=== PATIENT | male | born 1975 | race Caucasian/White ===

== ENCOUNTER 2024-01-01 09:08 | Emergency (ER) | payer OTHER, SELFPAY ==
[2024-01-01 09:14] VITALS: BP 117/74; PULSE 62; RESP 16; TEMP 36.2; O2SAT 97
[2024-01-01 09:22] VITALS: BP 117/74; PULSE 62; RESP 16; TEMP 36.2; O2SAT 97
--- NOTE | 2024-01-01 09:33 | ED.EYEPROB ---
HPI - Eye Problem General Chief complaint: Eye Problems Stated complaint: Eye Pain Time Seen by Provider: 01/01/24 09:18 Source: patient and RN notes reviewed Mode of arrival: ambulatory Limitations: no limitations History of Present Illness HPI Narrative: Patient presents today complaining of a 2 day history of soreness to the left lower eyelid at the lash line. Today he woke up with redness to this area as well. Denies drainage or vision changes. He has tried some azcs-iht-maujjgk drops without relief. Related Data Home Medications Medication Instructions Recorded Confirmed acetaminophen 500 mg tablet 500 mg PO Q6H PRN Pain 09/20/23 01/01/24 (Tylenol Extra Strength) alprazolam 0.5 mg tablet (Xanax) 0.5 mg PO QHS PRN Pain 09/20/23 01/01/24 apixaban 5 mg tablet (Eliquis) 5 mg PO BID 09/20/23 01/01/24 atorvastatin 10 mg tablet (Lipitor) 10 mg PO DAILY 09/20/23 01/01/24 hydrochlorothiazide 25 mg tablet 25 mg PO DAILY 09/20/23 01/01/24 metoprolol tartrate 50 mg tablet 50 mg PO BID 09/20/23 01/01/24 omeprazole magnesium 20 mg 20 mg PO DAILY 09/20/23 01/01/24 tablet,delayed release (Prilosec OTC) Allergies Allergy/AdvReac Type Severity Reaction Status Date / Time amoxicillin [From Augmentin] AdvReac Intermediate c diff Verified 01/01/24 09:20 clavulanic acid AdvReac Intermediate c diff Verified 01/01/24 09:20 [From Augmentin] Review of Systems Review of Systems: CONSTITUTIONAL: Denies body aches, fever, chills, or sweats. EYES: Denies visual changes, or discharge.+ left lower eyelid redness and pain ENT: Denies rhinorrhea, congestion, sore throat, or otalgia. CARDIOVASCULAR: Denies chest pain, palpitations, or edema. RESPIRATORY: Denies cough or dyspnea. GASTROINTESTINAL: Denies abdominal pain, nausea, vomiting, or diarrhea. GENITOURINARY: Denies dysuria or hematuria. SKIN: Denies rash, itching, or wounds. MUSCULOSKELETAL: Denies back pain, joint pain, or myalgia. NEUROLOGIC: Denies headache, numbness, tingling, or weakness. PSYCH: Denies depression or anxiety. [facility] Past Medical History Medical History GERD (gastroesophageal reflux disease) Seasonal allergies Tonsillectomy planned Family History Family History Father Hypertension Depression Alcoholism Mother Hypertension Depression Heart disease Alcoholism Sibling Alcoholism Depression Social History Social History Smoking status: Never smoker Alcohol intake: never Substance use: current Substance use type: marijuana Comments At time of signature, I have reviewed and agree with nursing past medical, surgical, social and family history unless otherwise noted. Please see nursing chart for further information. There is no relevant family history pertinent to the presenting complaint Exam Narrative: GENERAL: Well-appearing, well-nourished, and in no acute distress. HEAD: Normocephalic, atraumatic. EYES: EOMI. PERRL. Right eye normal. Left eye: lower eyelid has small area of swelling towards the center that is erythematous. No pustule at present. Mildly tender to palpation. Conjunctiva normal. No drainage. Upper eyelid normal. ENT: Mucous membranes pink and moist. NECK: Normal AROM. CHEST: No respiratory distress. EXTREMITIES: Normal range of motion. No edema. SKIN: Warm, dry, no rash. Capillary refill normal. Normal skin turgor. NEURO: No focal deficits. Alert and oriented x3. Gait steady. PSYCH: Normal affect. No signs of depression or anxiety. Course Course Level of Care: Express Care Visit Vital Signs Vital signs: Vital Signs Temperature 97.1 F L 01/01/24 09:14 Pulse Rate 62 01/01/24 09:14 Respiratory Rate 16 01/01/24 09:14 Blood Pressure 117/74 01/01/24 09:14 Pulse Oximetry 97 01/01/24 0
== END 2024-01-01 09:37 | disposition home or self-care (01) ==
PROVIDERS: Emergency Provider Nurse Practitioner
DX: H00.015 Hordeolum externum left lower eyelid (principal); F12.90 Cannabis use, unspecified, uncomplicated; K21.9 Gastro-esophageal reflux disease without esophagitis
CPT/HCPCS: 99213; G0463

== ENCOUNTER 2024-01-31 10:44 | Outpatient (CLI) | payer OTHER, SELFPAY | END 2024-01-31 10:45 | disposition home or self-care (01) | LOC: ANHAUDASC 10:44 | PROVIDERS: Visit Provider Otolaryngology | DX: H90.6 Mixed conductive and sensorineural hearing loss, bilateral (principal); H74.23 Discontinuity and dislocation of ear ossicles, bilateral; H72.93 Unspecified perforation of tympanic membrane, bilateral; Z90.89 Acquired absence of other organs | CPT/HCPCS: 92557; 92567 ==

== ENCOUNTER 2024-10-26 08:25 | Outpatient (CLI) | payer OTHER, SELFPAY ==
--- OUTSIDE RECORDS SUMMARY | 2024-10-26 08:33 | XMS_ITS | Clinical Summary ---
Author Organization [facility] Address [address] [place] [address] Care Team Providers Care Director Sanitation Bureau Name Role Phone Dick Mai MD Primary Care Provider + Allergies Active Allergy Reactions Criticality Noted Date Comments Amoxicillin-Pot Clavulanate Other (See comments) Low 03/13/2021 C diff Medications atorvastatin (LIPITOR) 10 mg tablet Take 1 tablet (10 mg total) by mouth daily 1 Active hydroCHLOROthia zide (HYDRODIURIL) 25 mg tablet Take 1 tablet (25 mg total) by mouth daily 1 Active omeprazole (PriLOSEC) 20 mg capsule Take 1 capsule (20 mg total) by mouth daily 1 Active cholecalciferol , vitamin D3, (VITAMIN D3 ORAL) Take by mouth daily Active ALPRAZolam (XANAX) 0.5 mg tablet Take 1 tablet (0.5 mg total) by mouth 9 Active OMEGA-3 FATTY ACIDS-FISH OIL ORAL Take by mouth daily Active MULTIVITAMIN ORAL Take 1 tablet by mouth daily Active apixaban (Eliquis) 5 mg tablet Take 1 tablet (5 mg total) by mouth 2 (two) times a day 2 Active sildenafiL (VIAGRA) 100 mg tablet Take 1 tablet (100 mg total) by mouth daily as needed for erectile dysfunction Active metoprolol tartrate (LOPRESSOR) 50 mg immediate release tablet Take 1 tablet (50 mg total) by mouth nightly 2 Active metoprolol XL (TOPROL-XL) 100 mg 24 hr tablet Take 1 tablet (100 mg total) by mouth daily Active Active Problems Problem Noted Date Diagnosed Date Essential hypertension 10/08/2021 Obstructive sleep apnea 10/08/2021 Thrombocytopenia 10/08/2021 Overview (10/08/2021): Sees Dr. Lin History of recurrent ear infection 10/08/2021 Assessment & Plan (10/08/2021 6:36 PM CDT): Will send prescription of cefidnir to patient pharmacy at this time as well as ofloxacin drops. Patient instructed to follow up with ENT for any worsening symptoms. Patient verbalized understanding and agreed to plan of care at this time. PAF (paroxysmal atrial fibrillation) 08/13/2021 Cardiac pacemaker in situ 04/01/2021 Overview (10/08/2021): Placed for syncope Syncope and collapse 03/13/2021 Assessment & Plan (03/13/2021 11:30 AM CDT): Patient has recurrent syncope with 3 episodes over the past 6 months and a prior distant history of recurrent syncope as well at which point cardiac and neurologic testing was reportedly normal per patient report. To date for these most recent episodes he has undergone cardiac evaluation which has been unrevealing by reviewed reports. At this time but has not had experienced any syncopal episodes since it has been inserted. He exhibits a normal neurologic examination. I will check an MRI brain with and without contrast in addition to a sleep-deprived EEG with hyperventilation photic stimulation. He will follow-up in neurology clinic thereafter. Dyslipidemia 05/26/2019 Nonalcoholic fatty liver disease 11/14/2018 Overview (10/08/2021): Dr. Wilkins/GI - liver biopsy 10/2018 - fatty liver, without significant inflammation or fibrosis (it showed mild chronic inflammation, probably due to NAFLD (non-alcoholic fatty liver disease) Resolved Problems Problem Noted Date Diagnosed Date Resolved Date Caries lesion, facial surface, advanced 05/12/2023 05/12/2023 Assessment & Plan (05/12/2023 6:59 AM COAT OPERATOR INSULATOR): Severe decay 16 and 17 To OR for extraction 16 and 17. Procedure reviewed including risks, benefits and alternative treatments, consent signed Surgical History Surgery Date Site/Laterality Comments HERNIA REPAIR TYMPANOSTOMY TUBE PLACEMENT 16 times TONSILLECTOMY CARDIAC PACEMAKER PLACEMENT [facility] / [facility] DENTAL SURGERY CYST REMOVAL back ESOPHAGOGASTRODUODENOSCOPY COLONOSCOPY Medical History Medical History Date Comments Liver disease Hypertension High cholesterol . Syncope after anesthesia 2013, one episode Arrhythmia a fib Pacemaker [facility]/ [facility] GERD (gastroesophageal reflux disease) Depression HL (hearing loss) Chronic diarrhea Clostridium difficile diarrhea History of recurrent ear infection Thrombocytopenia PAF (paroxysmal atrial fibrillation) (HCC) Sleep apnea Family History Medical History Relation Name Comments Alcohol abuse Brother Drug abuse Brother Alcohol abuse Father COPD Father Alcohol abuse Mother Hypertension Mother Alcohol abuse Sister Drug abuse Sister Relation Name Status Comments Brother Alive Father Alive Mother Alive Sister Alive Social History Tobacco Use Types Packs/Day Years Used Date Smoking Tobacco: Former Cigars Smokeless Tobacco: Never Tobacco Cessation:Counseling Given: Not Answered AUDIT-C Answer Date Recorded Q1: How often do you have a drink containing alcohol? Never 06/16/2024 Q2: How many drinks containi ng alcohol do you have on a typical day when you are drinking? Patient does not drink Q3: How often do you have si x or more drinks on one occasion? Never 06/16/2024 Personal Safety Answer Date Recorded Have you ever been in or are you currently in a harmful physical or emotional relationship or is someone making you feel afraid or unsafe? Denies 06/16/2024 Sex and Gender Information Value Date Recorded Sex Assigned at Not on file Legal Sex Male 10:40 AM COAT OPERATOR INSULATOR Gender Identity Male 03/12/2021 7:45 PM CDT Sexual Orientation Not on file Obstetrics History Last Filed Vital Signs Vital Sign Reading Time Taken Comments Blood Pressure 137/92 06/16/2024 11:10 AM COAT OPERATOR INSULATOR Pulse 60 06/16/2024 11:10 AM COAT OPERATOR INSULATOR Temperature 36.7 C (98 F) 06/16/2024 9:39 AM COAT OPERATOR INSULATOR Respiratory Rate 19 06/16/2024 11:10 AM COAT OPERATOR INSULATOR Oxygen Saturation 96% 06/16/2024 11:10 AM COAT OPERATOR INSULATOR Inhaled Oxygen Concentration - - Weight 154.2 kg (340 lb) 06/16/2024 10:13 AM COAT OPERATOR INSULATOR Height 170.2 cm (5' 7 ) 06/16/2024 10:13 AM COAT OPERATOR INSULATOR Body Mass Index 53.25 06/16/2024 10:13 AM COAT OPERATOR INSULATOR Plan of Treatment Health Maintenance Due Date Last Done Comments Depression Screening 1975 Hepatitis C Screening 1975 DTaP/Tdap/Td Vaccine (1 - Tdap) 09/10/1986 Hepatitis B Screening 09/10/1993 Regular Well Visit/Exam 18-64 09/10/1993 Pneumococcal vaccine <65 (1 of 2 - PCV) 09/10/1994 Covid-19 Vaccine ( - 2023-2 5 season) 2024 11/01/2020, 10/07/2020 Influenza Vaccine (Season Ended) 2025 05/30/2020, 03/27/2019, 04/23/2016, Additional history exists Colon Cancer Screening-Colonoscopy 06/16/20342023 Medical Devices Implanted Type Area Director Of Development Device Identifier Shelf Expiration Date Model / Serial / Lot Pacemaker-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/2020 (Quantity not on file) Pacemaker Left: Chest Procedures Procedure Name Priority Date/Time Associated Diagnosis Comments COLONOSCOPY 06/16/2024 10:16 AM COAT OPERATOR INSULATOR from Last 3 Months or Most Recently Relevant to Health Maintenance Results * Colonoscopy (06/16/2024 10:16 AM COAT OPERATOR INSULATOR) Anatomical Region Laterality Modality Other Narrative Procedure Note Kim Godoy MD - 06/16/2024 10:16 AM CST [facility] ENDOS[facility] Patient Name: Ulysses Jacob Procedure Date: 06/16/2024 10:16AM Date of : 1975 Admit Type: Outpatient Age: 48 Gender: Male Attending MD: Kim Godoy M.D. Room: [facility] ENDOSCOPY ROOM 06 Note Status: Finalized Procedure: Colonoscopy Indications: Screening for colorectal malignant neoplasm Referring MD: Providers: Kim Godoy M.D. Medicines: See the Anesthesia note for documentation of the administered medications Complications: No immediate complications. Estimated Blood Loss: Estimated blood loss: none. Procedure: Pre-Anesthesia Assessment: - Prior to the procedure, a History and Physicalwas performed, and patient medications, allergies and sensitivities were reviewed. The patient'stolerance of previous anesthesia was reviewed. - The risks and benefits of the procedure and the sedation options and risks were discussed with the patient. All questions were answered and informed consent was obtained. The benefits, risks and alternatives of theprocedure and sedation were discussed and informed consentwas obtained. All questions were answered. Please referto the signed informed consent document in the medical record. The scope was passed under direct vision.The [id number]-[id number] colonoscope was introduced through theanus and advanced to the cecum, identified byappendiceal orifice and ileocecal valve. The colonoscopy was performed without difficulty. The patient tolerated the procedure well. The quality of the bowel preparation was good. The ileocecal valve,appendiceal orifice, and rectum were photographed. Prep was administered in a single dose. Findings: The perianal and digital rectal examinations were normal. Pertinent negatives include normal sphincter tone. A few small-mouthed diverticula were found in the left colon. A 20 mm polyp was found in the ascending colon. The polyp wassessile. The polyp was removed with a hot snare. Resection and retrieval were complete. A 16 mm polyp was found in the transverse colon. The polyp wassessile. The polyp was removed with a hot snare. Resection and retrieval were complete. A 21 mm polyp was found in the descending colon. The polyp wassessile. The polyp was removed with a hot snare. Resection and retrieval were complete. The retroflexed view of the distal rectum and anal verge was normaland showed no anal or rectal abnormalities. Impression: - Diverticulosis in the left colon. - One 20 mm polyp in the ascending colon, removedwith a hot snare. Resected and retrieved. - One 16 mm polyp in the transverse colon, removed with a hot snare. Resected and retrieved. - One 21 mm polyp in the descending colon, removed with a hot snare. Resected and retrieved. - The distal rectum and anal verge are normal on retroflexion view. Recommendation: - Resume previous diet. - Continue present medications. - Await pathology results. Kim Godoy M.D. Kim Godoy M.D. 06/16/2024 11:05:33 AM . Number of Addenda: 0 Note Initiated On: 06/16/2024 10:16 AM Recognized by the [employer] for promoting quality in endoscopy Kmi Godoy MD ENDOSCOPY PROCEDURES Jazmin l Result from Last 3 Months or Most Recently Relevant to Health Maintenance [facility] CIGNA OPEN ACCESS Member Subscriber Plan / Payer (Ef fective 2017-Present) Name:Nidia Ulysses M Relation to Subscriber:Self Name:Nidia Ulysses Gallagher Payer ID:[id number] ([facility]) Type:CIGNA HMO/PPO Address: [address] [place] [address] [place] [address] CIGNA OPEN ACCESS Care Teams Director Sanitation Bureau Relationship Specialty Start Date End Date Dick Mai MD PCP - General 10/29/18
--- OUTSIDE RECORDS SUMMARY | 2024-10-26 08:33 | XMS_ITS | Encounter Summary ---
Author Organization [facility] Address [address] [place] [address] Care Team Providers Care Computer Network Support Specialist Name Role Phone Dick Mai MD Primary Care Provider [phone] Roc Cuevas MD Unavailable Encounter Details Date Type Department Care Team (Late st Contact Info) Description 03/20/2022 [employer] Message Enc [facility], [facility] [address] [place] [address] Rakel Mohan, ANP- Three [facility]. [address] [place] [address] Metoprolol Social History Tobacco Use Types Packs/Day Years Used Date Smoking Tobacco: Former Cigarettes Smokeless Tobacco: Never Comments:cigar/pipe 3 x week Alcohol Use Standard Drinks/Week Comments Not Currently 0 (1 standard drink = 0.6 oz pur e alcohol) quit 07/08/18 AUDIT-C Answer Date Recorded Frequency of Alcohol Consumption Never 05/08/2019 Average Number of Drinks Not on file 019 Frequency of Binge Drinking Not on file 04/28 Sex and Gender Information Value Date Recorded Sex Assigned at Male 07/24/2024 8:20 AM ADVERTISING INTERNSHIP Legal Sex Male 4:19 PM CDT Gender Identity Male 09/15/2021 6:19 AM CDT Sexual Orientation Straight 09/15/2021 6: 19 AM CDT 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 No / Unsure 03/13/2022 3:44 PM CDT documented as of this encounter Functional Status * RETIRED Are you deaf or do you have serious difficulty hearing Answer Date of Assessment Author Status No 08/13/2021 5:26 PM ADVERTISING INTERNSHIP Activ e * RETIRED Are you blind or do you have serious difficulty seeing, even when wearing glasses? Answer Date of Assessment Author Status No 08/13/2021 5:26 PM ADVERTISING INTERNSHIP Activ e * Do you have serious difficulty walking or climbing stairs? Answer Date of Assessment Author Status No 08/13/2021 5:26 PM Abby Beckwith RN Active * Do you have difficulty dressing or bathing? Answer Date of Assessment Author Status No 08/13/2021 5:26 PM Abby Beckwith RN Active * Because of a physical, mental, or emotional condition, do you have difficulty doing errands alone such as visiting a doctor's office or shopping? Answer Date of Assessment Author Status No 08/13/2021 5:26 PM Abby Beckwith RN Active documented as of this encounter Mental Status * Because of a physical, mental, or emotional condition, do you have serious difficulty concentrating, remembering, or making decisions? Answer Entry Date Author Status No 08/13/2021 5:26 PM Abby Beckwith RN Active documented in this encounter Plan of Treatment Upcoming Encounters Date Type Department Care Team (Late st Contact Info) Description 01/22/2025 8:30 AM CDT Office Visit [facility], [facility] [address] [place], [place] [phone] Rakel Mohan, ANP-BC [facility]. [address] [place], [place] [phone] 01/22/2025 8:45 AM CDT Office Visit [facility], [place] [address] [place], [place] [phone] Katya Valadez MD [facility]. [facility] [address] [place] [address] documented as of this encounter Visit Diagnoses Not on filedocumented in this encounter Care Teams Computer Network Support Specialist Relationship Specialty Start Date End Date Dick Mai MD [address] [place] [id number] PCP - General 07/06/16 Roc Cuevas MD [facility]. [facility] [address] [place], [place] [phone] [place] Senior Product Analyst INTERVENTIONAL CARDIOLOGY 02/24/19 documented as of this encounter
--- OUTSIDE RECORDS SUMMARY | 2024-10-26 08:33 | XMS_ITS | Encounter Summary ---
Author Organization [facility] Address [address] [place] [address] Care Team Providers Care Medical Bill Processor Name Role Phone Dick Mai MD Primary Care Provider [phone] Roc Cuevas MD Unavailable Encounter Details Date Type Department Care Team (Late st Contact Info) Description 03/16/2024 [employer] Message Enc [facility], [facility] [address] [place] [address] Rakel Mohan, ANP- Three [facility]. 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 Answer Date of Assessment Author Status No 08/13/2021 5:26 PM CLOTH TEARER Activ e * Do you have serious [...] Description 01/22/2025 8:30 AM CDT Office Visit [facility], [place] [place], [place] [phone] Rakel Mohan, ANP-BC [facility]. [address] [place] [address] 01/22/2025 8:45 AM CDT Office Visit [facility], [place] [place] [address] Katya Valadez MD Three [facility]. [facility] [address] [place] [address] documented as of this encounter Visit Diagnoses Not on filedocumented in this encounter Care Teams Medical Bill Processor Relationship Specialty Start Date End Date Dick Mai MD [address] [place] [phone] PCP - General 07/06/16 Roc Cuevas MD [facility]. [facility] [address] [place] [address] [place] Respiratory Care Instructor INTERVENTIONAL CARDIOLOGY 02/24/19 documented as of this encounter
--- OUTSIDE RECORDS SUMMARY | 2024-10-26 08:33 | XMS_ITS | Encounter Summary ---
Author Organization [facility] Address [address] [place] [address] Care Team Providers Care Pump Service Supervisor Name Role Phone Dick Mai MD Primary Care Provider [phone] Roc Cuevas MD Unavailable Encounter Details Date Type Department Care Team (Late st Contact Info) Description 07/02/2023 [employer] Message Enc [place] [facility], [address] [address] [place], [facility] Provider NO events on transmission Social History Tobacco Use Types Packs/Day Years [...] Sex Assigned at Male 07/24/2024 8:20 AM LABORER HEADING Legal Sex Male 4:19 PM CDT Gender [...] Assessment Author Status No 08/13/2021 5:26 PM LABORER HEADING Activ e * RETIRED Are you blind or do you have serious difficulty seeing, even when wearing glasses? Answer Date of Assessment Author Status No 08/13/2021 5:26 PM LABORER HEADING Activ e * Do you have serious [...] Description 01/22/2025 8:30 AM CDT Office Visit [facility], [place] [place], [place] [phone] Rakel Mohan, ANP-BC [facility]. [address] [place], [place] [phone] 01/22/2025 8:45 AM CDT Office Visit [facility], [place] [place], [place] [phone] Katya Valadez MD [facility]. [address] [place] [address] documented as of this encounter Visit Diagnoses Not on filedocumented in this encounter Care Teams Pump Service Supervisor Relationship Specialty Start Date End Date Dick Mai MD [address] [place] [phone] PCP - General 07/06/16 Roc Cuevas MD [facility]. [facility] [address] [place], [place] [phone] [place] Auditor Tax INTERVENTIONAL CARDIOLOGY 02/24/19 documented as of this encounter
--- OUTSIDE RECORDS SUMMARY | 2024-10-26 08:33 | XMS_ITS | Encounter Summary ---
Author Organization [facility] Address [address] [place] [address] Care Team Providers Care Tour Leader Name Role Phone Dick Mai MD Primary Care Provider [phone] Roc Cuevas MD Unavailable Encounter Details Date Type Department Care Team (Late st Contact Info) Description 04/01/2023 SprinkleBit Message Enc [place] [facility] THREE [facility], [facility] [address] [place] [address] Rakel Mohan, ANP-BC Three [facility]. [facility] [address] [place] [address] New symptom / sensation Social History Tobacco Use Types Packs/Day Years [...] Sex Assigned at Male 07/24/2024 8:20 AM FINISHED HARDWARE ERECTOR Legal Sex Male 4:19 PM CDT Gender [...] Assessment Author Status No 08/13/2021 5:26 PM FINISHED HARDWARE ERECTOR Activ e * RETIRED Are you blind or do you have serious difficulty seeing, even when wearing glasses? Answer Date of Assessment Author Status No 08/13/2021 5:26 PM FINISHED HARDWARE ERECTOR Activ e * Do you have serious [...] Description 01/22/2025 8:30 AM CDT Office Visit [place] [facility], [place] [address] [place], [place] [id number] Rakel Mohan, ANP-BC [facility]. [address] [place] [address] 01/22/2025 8:45 AM CDT Office Visit [place] [facility], [place] [address] [place] [address] Katya Valadez MD Three [facility]. [facility] [address] [place] [address] documented as of this encounter Visit Diagnoses Not on filedocumented in this encounter Care Teams Tour Leader Relationship Specialty Start Date End Date Dick Mai MD [address] [place] [id number] PCP - General 07/06/16 Roc Cuevas MD Three [facility]. [facility] [address] [place] [address] [place] Dial Maker INTERVENTIONAL CARDIOLOGY 02/24/19 documented as of this encounter
--- OUTSIDE RECORDS SUMMARY | 2024-10-26 08:33 | XMS_ITS | Encounter Summary ---
Author Organization [facility] Address [address] [place] [address] Care Team Providers Care Clay Carman Name Role Phone Dick Mai MD Primary Care Provider [phone] Roc Cuevas MD Unavailable Encounter Details Date Type Department Care Team (Late st Contact Info) Description 10/09/2022 Deem Message Enc [place] [facility] THREE [facility], [facility] [address] [place] [address] [facility] Provider Dental procedure Social History Tobacco Use Types Packs/Day Years [...] Sex Assigned at Male 07/24/2024 8:20 AM ASSISTANT HVAC MECHANIC Legal Sex Male 4:19 PM CDT Gender [...] Assessment Author Status No 08/13/2021 5:26 PM ASSISTANT HVAC MECHANIC Activ e * RETIRED Are you blind or do you have serious difficulty seeing, even when wearing glasses? Answer Date of Assessment Author Status No 08/13/2021 5:26 PM ASSISTANT HVAC MECHANIC Activ e * Do you have serious [...] Description 01/22/2025 8:30 AM CDT Office Visit [place] [facility], [facility] [address] [place], [place] [id number] Rakel Mohan, ANP-BC [facility]. [address] [place], [place] [id number] 01/22/2025 8:45 AM CDT Office Visit [place] [facility], [place] [address] [place], [place] [id number] Katya Valadez MD [facility]. [address] [place], [place] [id number] documented as of this encounter Visit Diagnoses Not on filedocumented in this encounter Care Teams Clay Carman Relationship Specialty Start Date End Date Dick Mai MD [address] [place] [address] PCP - General 07/06/16 Roc Cuevas MD [facility]. [facility] [address] [place] [address] [place] [facility] Assistant INTERVENTIONAL CARDIOLOGY 02/24/19 documented as of this encounter
--- OUTSIDE RECORDS SUMMARY | 2024-10-26 08:33 | XMS_ITS | CONTINUITY OF CARE DOCUMENT ---
Author Name jolene evelynda Address Unknown Organization [facility] Address [address] [place] [address] Phone [phone] Care Team Providers Care Supervisor Riveting Name Role Phone Jesse WINTER, Miguel Unavailable [phone] JASVIR DURÁN DO Unavailable [phone] JASVIR DURÁN DO Unavailable PROBLEMS Condition Status Date Provider Notes HYPERCHOLESTEROLEMIA active Yessenia Stahlsch midt OBESITY active Yessenia Stahlschmidt GERD active Yessenia Stahlschmidt CHEST PAIN-TYPE TO BE DETERMINED active Ang kelly Stahlschmidt PALPITATIONS active Yessenia Stahlschmidt DIZZINESS active Yessenia Stahlschmidt SLEEP APNEA active Miguel Molina MD ENCOUNTERS Date Type Provider Location Encounter Diag nosis - In-person encounter Office Visit Miguel Molina MD, [facility] SLEEP APNEA VITAL SIGNS Date Observation Value Provider blood pressure, diastolic, left arm 84 mm [Hg] Des Braga blood pressure, systolic, left arm 124 mm [Hg] Des Braga blood pressure, diastolic, right arm 80 m m[Hg] Des Braga blood pressure, systolic, right arm 120 m m[Hg] Des Braga pulse rate 88 /min Des Avila nsaisha oxygen saturation, oximetry 94 % Des Braga respiratory rate E&M 20 /min Anita Braga weight E&M 251 [lb_av] Des Avila nson ALLERGIES No Known Drug Allergies HISTORY OF MEDICATION USE Medication Status Instructions Dates Provider Indications Com ments DALMANE 15 MG CAPS active once daily Des Braga AMBIEN 10 MG ORAL TABLET active ONE TAB. AT BEDTIME Des Braga XANAX 0.25 MG ORAL TABLET active ONE TAB. DAILY Des Braga EFFEXOR XR 150 MG ORAL CAPSULE EXTENDED RELEASE 24 HOUR active ONE TAB. DAILY Des Braga PRILOSEC 20 MG ORAL CAPSULE DELAYED RELEASE completed ONE TAB DAILY - Des Braga ATENOLOL 50 MG ORAL TABLET active ONE HALF TABLET TWO TIMES DAILY Cee Villalobos metoprolol tatrate 50mg not available sub. atenolol 50mg SOCIAL HISTORY Date Observation Value Provider social history E&M Marital Statu s: L cl alone E thnicity: Miguel Molina MD social history reviewed E&M reviewed Miguel Molina MD physical exercise, f requency, days per week no [employer] caffeine use, averag e drinks per day yes [employer] alcohol use, average drinks per day social basis only [employer] smoking status Non-smoker [employer] MENTAL STATUS Date Observation Value Provider assessment of judgme nt and insight E&M Alert and oriented to time, place and person. Mood and affect are normal. Miguel Molina MD INSURANCE PROVIDERS Payer name Policy type / Coverage type [place] red constitution party ID [employer] [facility] Other [id number] TREATMENT PLAN Date Name Performer follow up:due to ismael itary pvc's- check sleep study and continue metoprolol Miguel Molina MD follow up:resolved as long as he takes low dose metoprolol Miguel Molina MD follow up:could expl ain his symptoms and ventricular ectopy- schedule sleep study Miguel Molina MD
--- OUTSIDE RECORDS SUMMARY | 2024-10-26 08:33 | XMS_ITS | Clinical Summary ---
Author Organization [facility] Address [address] [place] [address] Care Team Providers Care Electric Switch Tester Name Role Phone Dick Mai MD Primary Care Provider [phone] Source Comments [facility],non-owned Affiliates and Associated Physician Practices is amultiple site organization consisting of ambulatory clinics and hospital sitesin [place], [place], [place] and [place]. This disclosure is being madepursuant to the Care Everywhere program and may not contain all information available regarding this patient. Last updated 18.[facility] Allergies No known active allergies Medications * Be aware that medications may not be up to date on this document. Alwaysverify current medications with the patient. ALPRAZolam (Xanax) 0.5 MG tablet Take 0.5 mg by mouth 3 times daily as needed for Anxiety. Active hydroCHLOROthia zide (HYDRODIURIL) 25 MG tabletIndicatio ns:Hypertension Take 25 mg by mouth once daily Reasons: High Blood Pressure Disorder Active penicillin v potassium (VEETIDS) 500 MG tablet Take 500 mg by mouth every 6 hours Active fluticasone propionate (FLONASE) 50 MCG/ACT nasal sprayIndication s:Allergic Rhinitis [place] 2 sprays into each nostril once daily Reasons: Allergic Rhinitis Active omeprazole (PriLOSEC) 20 MG capsule Take 20 mg by mouth once daily 03/08/2022 Active apixaban (Eliquis) 5 MG tablet Take 5 mg by mouth 2 times daily 08/13/2021 Active metoprolol tartrate IR (Lopressor) 50 MG tablet Take 50 mg by mouth 2 times daily 11/04/2021 Active atorvastatin (Lipitor) 10 MG tablet Take 10 mg by mouth once daily 03/01/2022 Active Active Problems Problem Noted Date Diagnosed Date NAFLD (nonalcoholic fatty liver disease) 019 Overview (11/14/2018): Dr. Wilkins/GI - liver biopsy 10/2018 - fatty liver, without significant inflammation or fibrosis (it showed mild chronic inflammation, probably due to NAFLD (non-alcoholic fatty liver disease) Family History Medical History Relation Name Comments Cancer - Liver Father Cancer - Liver Maternal Grandfather Cancer - Colon Neg Hx Colon polyps Neg Hx Malignant Hyperthermia Neg Hx Relation Name Status Comments Father Maternal Grandfather Social History Tobacco Use Types Packs/Day Years Used Date Smoking Tobacco: Some Days Cigarettes Started: 08/10/2018 Smokeless Tobacco: Never Comments:current cigar use Alcohol Use Standard Drinks/Week Comments No 0 (1 standard drink = 0.6 oz pur e alcohol) Sex and Gender Information Value Date Recorded Sex Assigned at Not on file Legal Sex Male 6:04 AM SCALLOP SHUCKER Gender Identity Not on file Sexual Orientation Not on file Last Filed Vital Signs Vital Sign Reading Time Taken Comments Blood Pressure 117/74 11/09/2018 1:00 PM CDT Pulse 66 11/09/2018 1:00 PM CDT Temperature 37 C (98.6 F) 11/09/2018 10:40 AM CDT Respiratory Rate 18 11/09/2018 11:30 AM CDT Oxygen Saturation 94% 11/09/2018 1:00 PM CDT Inhaled Oxygen Concentration - - Weight 158.8 kg (350 lb) 03/11/2022 11:55 AM CDT Height 170.2 cm (5' 7 ) 03/11/2022 11:55 AM CDT Body Mass Index 54.82 03/11/2022 11:55 AM CDT Plan of Treatment Health Maintenance Due Date Last Done Comments COLOGUARD (AGES 45-75) - COLON CA SCREENING 1975 COLON MONITORING 1975 COLONOSCOPY - COLON CA SCREENING 1975 CT COLONOGRAPHY - COLON CA SCREENING 1975 Colorectal Cancer Screening 1975 FIT - COLON CA SCREENING 1975 FLEX SIG - COLON CA SCREENING 1975 HIV SCREENING 09/10/1990 DTAP/TDAP/TD VACCINES (1 - Tdap) 09/10/1994 HEPATITIS B VACCINE (1 of 3 - 19+ 3-dose series) 09/10/1994 SCREENING FOR DIABETES 06/07/2018 COVID-19 VACCINE (3 - 2023- season) 2024 11/01/2020, 10/07/2020 DEPRESSION SCREENING 06/28/2024 INFLUENZA VACCINE (Season Ended) 2025 02/17/2021, 05/30/2020, 03/27/2019, Additional history exists ZOSTER VACCINE (1 of 2) 09/10/2025 HEPATITIS C SCREENING Completed 06/20/2018 HIB VACCINE Aged Out No longer eligi ble based on patient's age to complete this topic HPV VACCINE Aged Out No longer eligi ble based on patient's age to complete this topic MENINGOCOCCAL (Group B) VACCINE SHARED DECISION-MAKING Aged Out No longer eligible based on patient's age to complete this topic MENINGOCOCCAL GROUPS A/C/Y/W VACCINE Aged Out No longer eligible based on patient's age to complete this topic Procedures Procedure Name Priority Date/Time Associated Diagnosis Comments HEPATITIS C ANTIBODY Routine 06/20/2018 7:56 AM SCALLOP SHUCKER Abnormal LFTs from Last 3 Months or Most Recently Relevant to Health Maintenance Results * HEPATITIS C ANTIBODY (06/20/2018 7:56 AM SCALLOP SHUCKER) Hepatitis C Antibody <0.1 0.0 - 0.9 s/co ratio [facility] INSURANCE BILL Comment: Negative: < 0.8 Indeterminate: 0.8 - 0.9 Positive: > 0.9 . The CDC recommends that a positive HCV antibody result be followed up with a HCV Nucleic Acid Amplification test (224363). FASTING Blood BLOOD SPECIMEN / Unknown 06/20/2018 7:56 AM SCALLOP SHUCKER 06/20/2018 Narrative Resulting Agency Comment [facility] [address] [facility] [id number] us Marco Wilkins MD LAB - CHEMISTRY ORDERABLES Fin al Result [facility] INSURANCE BILL [address] [place] [phone] from Last 3 Months or Most Recently Relevant to Health Maintenance Insurance [employer] Care Teams Electric Switch Tester Relationship Specialty Start Date End Date Dick Mai MD PCP - General Family Medicine 06/07/18
--- OUTSIDE RECORDS SUMMARY | 2024-10-26 08:33 | XMS_ITS | Encounter Summary ---
Author Organization [facility] Address [address] [place] [address] Care Team Providers Care Shactor Helper Name Role Phone Dick Mai MD Primary Care Provider [phone] Roc Cuevas MD Unavailable Encounter Details Date Type Department Care Team (Late st Contact Info) Description 08/27/2023 Helpful Technologies Message Enc [place] [facility], [facility] [address] [place] [address] Rakel Mohan, ANP- Three [facility]. [address] [place] [address] New issue? 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 Answer Date of Assessment Author Status No 08/13/2021 5:26 PM DRIVER LICENSE TECHNICIAN Activ e * Do you have serious [...] 5:26 PM Abby Beckwith RN Active * Calculated C-SSRS Risk Score (Lifetime/Recent) Answer Date of Assessment Author Status No Risk Indicated 08/27/2023 1:02 PM Hamida Raza RN Active * [place] Suicide Severity Rating Scale (Screener/Recent Self-Report) Question Answer Date of Assessment Author Status 1. Wish to be (Past 1 Month) No 08/27/2023 1:02 PM Marah Raza RN Ac tive 2. Non-Specific Active Suicidal Thoughts (Past 1 Month) No 08/27/2023 1:02 PM Marah Raza RN Ac tive 6. Suicidal Behavior (Lifetime) No 08/27/2023 1:02 PM Marah Raza RN Ac tive documented as of this encounter Mental Status * Because of a physical, mental, or emotional condition, do you have serious difficulty concentrating, remembering, or making decisions? Answer Entry Date Author Status No 08/13/2021 5:26 PM DRIVER LICENSE TECHNICIAN Abby Crespo, RN Active documented in this encounter Plan of Treatment Upcoming Encounters Date Type Department Care Team (Late st Contact Info) Description 01/22/2025 8:30 AM CDT Office Visit [facility], [place] [place] [address] Rakel Mohan, ANP-BC Three [facility]. [place] [place], [place] [address] 01/22/2025 8:45 AM CDT Office Visit [place] [facility], [place] [place], [place] [address] Katya Valadez MD Three [facility]. [facility] [place], [place] [address] documented as of this encounter Visit Diagnoses Not on filedocumented in this encounter Care Teams Shactor Helper Relationship Specialty Start Date End Date Dick Mai MD [facility] [place] [address] PCP - General 07/06/16 Roc Cuevas MD [facility]. [place] [place], [place] [address] [place] Profile Shaper Operator INTERVENTIONAL CARDIOLOGY 02/24/19 documented as of this encounter
--- OUTSIDE RECORDS SUMMARY | 2024-10-26 08:33 | XMS_ITS | Encounter Summary ---
Author Organization [facility] Address [address] [place] [address] Care Team Providers Care Collect On Delivery Clerk Name Role Phone Dick Mai MD Primary Care Provider [phone] Roc Cuevas MD Unavailable Encounter Details Date Type Department Care Team (Late st Contact Info) Description 07/31/2019 Abstract [facility] [place] Three [facility], [facility] [address] [place] [address] Melanie Norris MA Social History Tobacco Use Types Packs/Day Years Used Date Smoking Tobacco: Former Smokeless Tobacco: Never Comments:cigar/pipe 3 x week Alcohol Use Standard Drinks/Week Comments No 0 (1 standard drink = 0.6 oz pur e alcohol) quit 07/08/18 AUDIT-C Answer Date Recorded Frequency of Alcohol Consumption Never 05/08/2019 Average Number of Drinks Not on file 019 Frequency of Binge Drinking Not on file 04/28 Sex and Gender Information Value Date Recorded Sex Assigned at Male 07/24/2024 8:20 AM ETCHER APPRENTICE Legal Sex Male 4:19 PM CDT Gender Identity Male 09/15/2021 6:19 AM CDT Sexual Orientation Straight 09/15/2021 6: 19 AM CDT 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 [place] [address] [place], [place] [id number] 01/22/2025 8:45 AM CDT Office Visit [facility] [address], [place] [place], [place] [address] Katya Valadez MD Three [address] [facility] [address] [place], [place] [id number] documented as of this encounter Procedures Procedure Name Priority Date/Time Associated Diagnosis Comments PROTIME (OUTSIDE LAB) Routine 07/29/2019 CBC (OUTSIDE LAB) Routine 07/29/2019 BASIC METABOLIC PANEL Routine 07/29/2019 LIPID PANEL Routine 07/29/2019 documented in this encounter Results * PROTIME (OUTSIDE LAB) (07/29/2019) PROTIME 10.6 INR 1.0 07/29/2019 us Doc [facility] Abstract LAB-OUTSIDE/ABSTRACTED Final Result * LIPID PANEL (07/29/2019) CHOLESTEROL 161 100 - 199 HDL 31 >39 TRIGLYCERIDES 192 0 - 149 LDL (CALCULATED) 92 0 - 99 07/29/2019 us Doc [facility] Abstract LABORATORY Final Result * BASIC METABOLIC PANEL (07/29/2019) SODIUM S/P/B 142 134 - 144 POTASSIUM S/P/B 3.9 3.5 - 5.2 CO2 25 20 - 29 CHLORIDE S/P/B 98 96 - 106 GLUCOSE 95 65 - 99 mg/dL CALCIUM S/P/B 9.7 8.7 - 10.2 BUN 13 6 - 24 CREATININE S/P/B 1.02 0.7 - 1.3 EGFR AFR. AMER. 104 EGFR NON-AFR. AMER. 90 <=90 07/29/2019 us Doc [facility] Abstract LABORATORY Final Result * CBC (OUTSIDE LAB) (07/29/2019) WBC 7.7 3.4 - 10.8 HGB 17.2 13.0 - 17.7 HCT 50.7 37.5 - 51.0 PLT 258 150 - 450 07/29/2019 us Doc [facility] Abstract LAB-OUTSIDE/ABSTRACTED Edite d Result - Final documented in this encounter Visit Diagnoses Not on filedocumented in this encounter Additional Health Concerns Infection Onset Date Last Indicated Resolved Time COVID-19 Rule Out 08/13/2021 08/13/2021 08/13/2021 3:43 PM ETCHER APPRENTICE documented as of this encounter Care Teams Collect On Delivery Clerk Relationship Specialty Start Date End Date Dick Mai MD [facility] [place] [address] PCP - General 07/06/16 Roc Cuevas MD Three [facility]. [address] [place] [address] [place] Youth Associate INTERVENTIONAL CARDIOLOGY 02/24/19 documented as of this encounter
--- OUTSIDE RECORDS SUMMARY | 2024-10-26 08:33 | XMS_ITS | Encounter Summary ---
Author Organization [facility] Address [address] [place] [address] Care Team Providers Care Floating Operator Name Role Phone Dick Mai MD Primary Care Provider [phone] Roc Cuevas MD Unavailable Encounter Details Date Type Department Care Team (Late st Contact Info) Description 09/15/2024 [employer] Office [address] [place] [address] [facility] Provider Action Needed Social History Tobacco Use Types Packs/Day Years [...] Sex Assigned at Male 07/24/2024 8:20 AM WOOD CARVING LATHE OPERATOR Legal Sex Male 4:19 PM CDT Gender [...] Assessment Author Status No 08/13/2021 5:26 PM WOOD CARVING LATHE OPERATOR Activ e * RETIRED Are you blind or do you have serious difficulty seeing, even when wearing glasses? Answer Date of Assessment Author Status No 08/13/2021 5:26 PM WOOD CARVING LATHE OPERATOR Activ e * Do you have serious [...] Description 01/22/2025 8:30 AM CDT Office Visit [facility], [facility] [address] [place] [address] Rakel Mohan, ANP-BC [facility]. [facility] [address] [place] [address] 01/22/2025 8:45 AM CDT Office Visit [facility], [facility] [address] [place], [place] [address] Katya Valaedz MD [facility]. [facility] [address] [place], [place] [address] documented as of this encounter Visit Diagnoses Not on filedocumented in this encounter Care Teams Floating Operator Relationship Specialty Start Date End Date Dick Mai MD [address] [place] [address] PCP - General 07/06/16 Roc Cuevas MD [facility]. [facility] [address] [place] [address] [place] Hydrant Setter INTERVENTIONAL CARDIOLOGY 02/24/19 documented as of this encounter
--- OUTSIDE RECORDS SUMMARY | 2024-10-26 08:33 | XMS_ITS | Encounter Summary ---
Author Organization [facility] Address [address] [place] [address] Care Team Providers Care Director Energy Name Role Phone Dick Mai MD Primary Care Provider [phone] Roc Cuevas MD Unavailable Encounter Details Date Type Department Care Team (Late st Contact Info) Description 10/03/2019 [facility] Patient Accounts [address] [place] [address] [place], [facility] Provider Regarding your past due balance Social History Tobacco Use Types Packs/Day Years [...] Sex Assigned at Male 07/24/2024 8:20 AM PUBLIC AFFAIRS DIRECTOR Legal Sex Male 4:19 PM CDT Gender [...] CDT Office Visit [facility] [place] [place] [address] Rakel Mohan, ANP- Three [facility]. [address] [place] [address] 01/22/2025 8:45 AM CDT Office Visit [facility] [place] [place], [place] [address] Katya Valadez MD Three [facility]. [address] [place], [place] [address] documented as of this encounter Visit Diagnoses Not on filedocumented in this encounter Additional Health Concerns Infection Onset Date Last Indicated Resolved Time COVID-19 Rule Out 08/13/2021 08/13/2021 08/13/2021 3:43 PM PUBLIC AFFAIRS DIRECTOR documented as of this encounter Care Teams Director Energy Relationship Specialty Start Date End Date Dick Mai MD [address] [place] [address] PCP - General 07/06/16 Roc Cuevas MD Three [facility]. [address] [place] [address] [place] Glove Presser INTERVENTIONAL CARDIOLOGY 02/24/19 documented as of this encounter
--- OUTSIDE RECORDS SUMMARY | 2024-10-26 08:33 | XMS_ITS | Encounter Summary ---
Author Organization [facility] Address [address] [place] [id number] Care Team Providers Care Software Developer Manager Name Role Phone Dick Mai MD Primary Care Provider [phone] Roc Cuevas MD Unavailable Encounter Details Date Type Department Care Team (Late st Contact Info) Description 05/19/2022 Wireless Environment Message Enc [facility], [facility] [address] [place] [address] Rakel Mohan, ANP- [facility]. 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 No / Unsure 05/01/2022 3:01 PM CDT documented as of this encounter Functional Status * RETIRED Are you deaf or do you have serious difficulty hearing Answer Date of Assessment Author Status No 08/13/2021 5:26 PM ALMOND BLANCHER HAND Activ e * RETIRED Are you blind or do you have serious difficulty seeing, even when wearing glasses? Answer Date of Assessment Author Status No 08/13/2021 5:26 PM ALMOND BLANCHER HAND Activ e * Do you have serious [...] CDT Office Visit [facility], [address] [place] [address] Rakel Mohan, ANP-BC [facility]. [address] [place] [address] 01/22/2025 8:45 AM CDT Office Visit [facility], [address] [place], [place] [id number] Katya Valadez MD [facility]. [address] [place], [place] [address] documented as of this encounter Visit Diagnoses Not on filedocumented in this encounter Care Teams Software Developer Manager Relationship Specialty Start Date End Date Dick Mai MD [facility] [place] [address] PCP - General 07/06/16 Roc Cuevas MD [facility]. [address] [place] [address] [place] [employer] Operator INTERVENTIONAL CARDIOLOGY 02/24/19 documented as of this encounter
--- OUTSIDE RECORDS SUMMARY | 2024-10-26 08:33 | XMS_ITS | Encounter Summary ---
Author Organization [facility] Address [address] [place] [address] Care Team Providers Care Plumbing Mechanic Name Role Phone Dick Mai MD Primary Care Provider [phone] Roc Cuevas MD Unavailable Encounter Details Date Type Department Care Team (Late st Contact Info) Description 08/29/2021 [employer] Message Enc [facility], [facility] [address] [place] [address] Rakel Mohan, ANP-BC [facility]. [address] [place] [address] FMLA paperwork question Social History Tobacco Use Types Packs/Day Years [...] Sex Assigned at Male 07/24/2024 8:20 AM PANELBEATER Legal Sex Male 4:19 PM CDT Gender [...] suspected to have Coronavirus/COVID-19? No / Unsure 08/13/2021 5:17 PM PANELBEATER documented as of this encounter Functional Status * RETIRED Are you deaf or do you have serious difficulty hearing Answer Date of Assessment Author Status No 08/13/2021 5:26 PM PANELBEATER Activ e * RETIRED Are you blind or do you have serious difficulty seeing, even when wearing glasses? Answer Date of Assessment Author Status No 08/13/2021 5:26 PM PANELBEATER Activ e * Do you have serious difficulty walking or climbing stairs? Answer Date of Assessment Author Status No 08/13/2021 5:26 PM PANELBEATER Abby Crespo RN Active * Do you have difficulty dressing or bathing? Answer Date of Assessment Author Status No 08/13/2021 5:26 PM PANELBEATER Abby Crespo RN Active * Because of a physical, [...] Beckwith RN Active documented in this encounter Progress Notes * Cynthia Palmer - 09/02/2021 10:48 AM CSTSummary: JESSE - Ulysses Jacob Called patient and gave him my fax number. LBEATER * RONAK Gordillo - 09/01/2021 8:23 AM CST Can you give the patient your fax # please? LBEATER documented in this encounter Plan of Treatment Upcoming Encounters Date Type Department Care Team (Late st Contact Info) Description 01/22/2025 8:30 AM CDT Office Visit [facility], [address] [place] [address] Rakel Mohan ANP-BC [facility]. [address] [place], [place] [address] 01/22/2025 8:45 AM CDT Office Visit [facility], [address] [place], [place] [address] Katya Valadez MD [facility]. [address] [place], [place] [address] documented as of this encounter Visit Diagnoses Not on filedocumented in this encounter Care Teams Plumbing Mechanic Relationship Specialty Start Date End Date Dick Mai MD [address] [place] [id number] PCP - General 07/06/16 Roc Cuevas MD [facility]. [address] [place], [place] [address] [place] Analytics Director INTERVENTIONAL CARDIOLOGY 02/24/19 documented as of this encounter
--- OUTSIDE RECORDS SUMMARY | 2024-10-26 08:33 | XMS_ITS | Clinical Summary ---
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 1 9 Active Multiple Vitamin (MULTIVITAMIN OR) Take 1 tablet by mouth daily. Active Norman-3 Fatty Acids (FISH OIL OR) Take 1,400 mg by mouth daily. Active VITAMIN D OR Take 1,000 Units by mouth daily. Active polycarbophil (FIBER) 625 MG tablet Take 1 tablet (625 mg total) by mouth daily. Active hydroCHLOROthi azide (HYDRODIURIL) 25 MG tablet Take 1 tablet (25 mg total) by mouth every morning. 30 tablet 3 Active sildenafil (VIAGRA) 50 MG tablet as needed. 5 Active omeprazole (PRILOSEC) 20 MG capsule Take 1 capsule (20 mg total) by mouth daily. 4 Active ALPRAZolam (XANAX) 0.5 MG tablet Take 1 tablet (0.5 mg total) by mouth every 8 (eight) hours as needed. 4 Active diazePAM (VALIUM) 2 MG tabletIndicati ons:Back strain Take 1 tablet (2 mg total) by mouth every 6 (six) hours as needed (Back pain). 12 tablet 5 Active gabapentin (NEURONTIN) 100 MG capsule Take 1 capsule (100 mg total) by mouth 3 (three) times daily. 90 capsule 5 Active HYDROcodone-ac etaminophen (NORCO) 7.5-325 MG tabletIndicati ons:Acute Pain < 7 Day Supply Take 1 tablet by mouth every 6 (six) hours as needed for Pain. Indications: Acute Pain < 7 Day Supply 21 tablet 5 Active naloxone (NARCAN) 4 MG/0.1ML nasal spray 1 spray by Nasal route as needed for Opioid reversal. may repeat every 2 to 3 minutes in alternating nostrils until medical assistance becomes available 1 each 5 09/20/19 26 Active apixaban (ELIQUIS) 5 MG tabletIndicati ons:PAF (paroxysmal atrial fibrillation) (CMS/HCC HHS/HCC) Take 1 tablet (5 mg total) by mouth 2 (two) times daily. 180 tablet 1 5 Active metoprolol succinate ER (TOPROL-XL) 100 MG 24 hr tablet Take 1 tablet (100 mg total) by mouth daily with breakfast. And 1/2 tablet (50mg) in the evenings 135 tablet 1 5 Active metoprolol succinate ER (TOPROL-XL) 100 MG 24 hr tablet Take 1 tablet (100 mg total) by mouth daily with breakfast. And 1/2 tablet (50mg) in the evenings 135 tablet 1 4 10/21/19 25 Discontin ued(Reord er) apixaban (ELIQUIS) 5 MG tabletIndicati ons:PAF (paroxysmal atrial fibrillation) (CMS/HCC HHS/HCC) Take 1 tablet by mouth twice daily 180 tablet 1 5 10/05/19 25 Discontin ued(Reord er) Active Problems Problem Noted Date Diagnosed Date PAF (paroxysmal atrial fibrillation) (CMS/HCC HH S/HCC) 08/13/2021 Cardiac pacemaker in situ 04/01/2021 Overview (04/01/2021): Placed for syncope Syncope and collapse 03/13/2021 Overview (05/05/2021): Last Assessment & Plan: Patient has recurrent syncope with 3 episodes [...] follow-up in neurology clinic thereafter. Dyslipidemia 05/26/2019 Essential hypertension Nonalcoholic fatty liver disease Obstructive sleep apnea Thrombocytopenia Overview (05/05/2021): Sees Dr. Lin Resolved Problems Problem Noted Date Diagnosed Date Resolved Date Syncope and collapse 01/05/2021 021 Other chest pain 05/26/2019 05/05/2021 NAFLD (nonalcoholic fatty liver disease) 11/14/2018 05/05/2021 Overview (12/23/2020): Dr. Wilkins/GI - liver biopsy 10/2018 - fatty liver, without significant inflammation or fibrosis (it showed mild chronic inflammation, probably due to NAFLD (non-alcoholic fatty liver disease) Encounters Date Type Department Care Team Description 10/20/2024 Telephone [facility] [address] [address] Roc Cuevas MD Refill Request (metoprolol) 10/16/2024 8:14 AM CDT - 10/16/2024 11:59 PM CDT Hospital Encounter [facility] Ultrasound [address] [place] [address] Sinan Mai MD Discharge Disposition: Home or Self Care (Routine Discharge) 10/16/2024 Travel 10/04/2024 Telephone [facility] [place] [address] [place] [address] Roc Cuevas MD Refill Request (ELIQUIS) 09/19/2024 9:09 AM CDT - 09/19/2024 10:43 AM CDT [facility] Emergency Room [address] [place] [address] Yareli Kaur MD Back Pain Discharge Disposition: Home or Self Care (Routine Discharge) 09/19/2024 Telephone [facility]is[facility] - [facility] [address] [facility], [address] [place] [address] Kaz Pettit MD Appointment Request 09/19/2024 Travel 09/15/2024 [employer] [address] [place] [address] [facility] Provider Action Needed 09/13/2024 4:34 PM CDT - 09/13/2024 9:03 PM CDT [facility] Emergency Room [address] [place] [address] Kalyn Davidson MD Back Pain Discharge Disposition: Home or Self Care (Routine Discharge) 09/13/2024 Travel from Last 3 Months Immunizations Immunization Administration Dates Next Due Influenza Adult (Generic) 03/27/2019 Family History Medical History Relation Comments COPD Father Lung Cancer Father Liver cancer Maternal Grandfather Open Heart Maternal Grandfather Open Heart Maternal Grandmother Hypertension Mother Open Heart Paternal Grandfather Relation Status Comments Father Alive Maternal Grandfather (Age 67) Maternal Grandmother Alive Mother Alive Paternal Grandfather (Age 90) Social History Tobacco Use Types Packs/Day Years Used Date Smoking Tobacco: Former Cigarettes Smokeless Tobacco: Never Tobacco Cessation:Counseling Given: Not Answered Comments:cigar/pipe 3 x week Alcohol Use Standard [...] Sex Assigned at Male 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 Male 4:19 PM CDT Gender Identity Male 09/15/2021 6:19 AM CDT Sexual Orientation Straight 09/15/2021 6: 19 AM CDT 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 on file Not on file Not on file Last Filed Vital Signs Vital Sign Reading Time Taken Comments Blood Pressure 134/75 09/19/2024 10:41 AM CDT Pulse 87 09/19/2024 9:10 AM CDT Temperature 36.6 C (97.8 F) 09/19/2024 10:41 AM CDT Respiratory Rate 20 09/19/2024 9:10 AM CDT Oxygen Saturation 95% 09/19/2024 10:41 AM CDT Inhaled Oxygen Concentration - - Weight 154.2 kg (340 lb) 09/19/2024 9:10 AM CDT Height 170.2 cm (5' 7 ) 09/19/2024 9:10 AM CDT Body Mass Index 53.25 09/19/2024 9:10 AM CDT Plan of Treatment Upcoming Encounters Date Type Department Care Team (Late st Contact Info) Description 01/22/2025 8:30 AM CDT Office Visit [facility], [facility] [place] [address] [place], [place] [address] Rakel Mohan, ANP-BC [facility]. [facility] [address] [place], [place] [id number] 01/22/2025 8:45 AM CDT Office Visit [facility], [facility] [place] [address] [place], [place] [id number] Katya Valadez MD [facility]. [facility] [place] [address] [place], [place] [id number] Health Maintenance Due Date Last Done Comments Colorectal Cancer Screening Colonoscopy (10 Years) 1975 Annual Physical 09/10/1978 DTaP, Tdap and Td Vaccines ( 1 - Tdap) 09/10/1994 Hepatitis B Vaccines (1 of 3 - 19+ 3-dose series) 09/10/1994 COVID-19 Vaccine (3 - 2023-2 5 season) 2024 11/01/2020, 10/07/2020 PHQ-2 (Physician [place]) 06/28/2024 Hepatitis C Completed 06/20/2018 Meningococcal B Vaccine Aged Out No l onger eligible based on patient's age to complete this topic Meningococcal Vaccine Aged Out No jarad shane eligible based on patient's age to complete this topic Pneumococcal Vaccine: Pediatrics (0 to 5 Years) and At-Risk Patients (6 to 49 Years) Aged Out No longer eligible b ased on patient's age to complete this topic RSV Immunizations Under 20 Months Aged Out No longer eligible b ased on patient's age to complete this topic Medical Devices Implanted Type Area Date Night Sitter Device Identifier Shelf Expiration Date Model / Serial / Lot Rv Lead-04/01/20 Implanted:Qt y: 1 on 04/01/2021 by Roc Cuevas MD Lead Implant Right: Ventricle [employer] [id number]- 8 / [id number] / Atrial Lead-04/01/20 Implanted:Qt y: 1 on 04/01/2021 by Roc Cuevas MD Lead Implant Left: Atrium [employer] [id number] 2 / [id number] / Sja Pacemaker- Implanted: by Roc Cuevas MD (Quantity not on file) Pacemaker Left: Chest [employer] DIV [employer] [id number] / [id number] / Explanted Type Area Date Night Sitter Device Identifier Shelf Expiration Date Model / Serial / Lot Implantable Loop [id number] /30/2021 Implanted:Qty: 1 on 01/24/2021 by Roc Cuevas MD Explanted:Qty: 1 on 04/01/2021 by Roc Cuevas MD Implantable Loop Recorder [employer] C[employer]IAC RHYTHM AND HEART FAILURE - DIV M 11/08/2021 [id number] / [id number] / Procedures Procedure Name Priority Date/Time Associated Diagnosis Comments US TESTICULAR Routine 10/16/2024 9:15 AM CDT Pain in right testicle LIPASE STAT 09/13/2024 6:55 PM CDT COMPREHENSIVE METABOLIC PANEL STAT 09/13/2024 6:55 PM CDT CBC W/DIFF AUTOMATED STAT 09/13/2024 6:[address] LUMB SPINE WO CON STAT 09/13/2024 6:[address] ABD+PEL WO CON STAT 09/13/2024 6:5 4 PM CDT URINALYSIS, AUTO, COMPLETE STAT 09/13/2024 5:45 PM CDT from Last 3 Months Results * US TESTICULAR (10/16/2024 9:15 AM CDT) Anatomical Region Laterality Modality Pelvis Ultrasound 10/16/2024 5:35 PM CDT Impressions 10/16/2024 5:41 PM CDT IMPRESSION: 1. No testicular mass. Normal color flow Doppler to both testes. 2. Small to moderate-sized bilateral hydroceles. 3. Imaging over the region of pain in the right inguinal region demonstrates probable adipose tissue containing hernia with opening of 2.[address] of 09/13/2024, it measured approximately 4.5 x 2.5 cm in the axial plane. Ordered By: SINAN MAI Interpreted By: Jania Hyde, 10/16/2024 5:35 PM Narrative 10/16/2024 5:41 PM CDT [facility] [address] [facility] [place] [address] IMAGING STUDIES: US TESTICULAR DATE: 10/16/2024 8:19 AM CLINICAL HISTORY: RIGHT TESTICILE PAIN . No history of trauma FINDINGS: RIGHT TESTICLE MEASURES 4.0 x 2.3 x 3.1 cm. LEFT TESTICLE MEASURES 4.1 x 2.2 x 2.7 cm. Homogeneous echotexture to both testes without mass. Normal color flow Doppler to both testes. Spectral and waveform analysis. Small/moderate sized right-sided hydrocele measuring 4.2 x 0.8 x 1.5 cm. Small to moderate size left-sided hydrocele measuring 4.5 x 0.7 x 1.7 cm. Right epididymis without solid mass. Normal color flow. Small epididymal head cysts with the largest measuring 2.6 mm.. Left epididymis without mass. Normal color flow Doppler. Procedure Note Jeramie Hyde MD - 10/16/2024 [facility] [address] [place] [address] IMAGING STUDIES: US TESTICULARDATE: 10/16/2024 8:19 AM CLINICAL HISTORY: RIGHT TESTICILE PAIN . No history of trauma FINDINGS: RIGHT TESTICLE MEASURES 4.0 x 2.3 x 3.1 cm. LEFT TESTICLE MEASURES 4.1 x 2.2 x 2.7 cm. Homogeneous echotexture to both testes without mass. Normal color flowDoppler to both testes. Spectral and waveform analysis. Small/moderate sized right-sided hydrocele measuring 4.2 x 0.8 x 1.5 cm. Small to moderate size left-sided hydrocele measuring 4.5 x 0.7 x 1.7cm. Right epididymis without solid mass. Normal color flow. Small epididymalhead cysts with the largest measuring 2.6 mm.. Left epididymis without mass. Normal color flow Doppler. IMPRESSION: 1. No testicular mass. Normal color flow Doppler to both testes. 2. Small to moderate-sized bilateral hydroceles. 3. Imaging over the region of pain in the right inguinal regiondemonstrates probable adipose tissue containing hernia with opening of 2.5cm. On CT of 09/13/2024, it measured approximately 4.5 x 2.5 cm in theaxial plane. Ordered By: SINAN MAI Interpreted By: Jania Hyde, 10/16/2024 5:35 PM us Sinan Mai MD ULTRASOUND Final Result * (ABNORMAL) COMPREHENSIVE METABOLIC PANEL (09/13/2024 6:55 PM CDT) [facility] GLUCOSE 128(H) 70 - 99 MG/DL 09/13/2024 7:16 PM CDT [facility] BUN 13 7 - 18 MG/DL 09/13/2024 7:16 PM T [facility] CREATININE S/P/B 1.06 0.7 - 1.3 MG/DL 09/13/2024 7:16 PM T [facility] SODIUM S/P/B 135(L) 136 - 145 MMOL/L 09/13/2024 7:16 PM T [facility] POTASSIUM S/P/B 3.3(L) 3.5 - 5.1 MMOL/L 09/13/2024 7:16 PM T [facility] CHLORIDE S/P/B 99(L) 100 - 108 MMOL/L 09/13/2024 7:16 PM T [facility] CO2 26.2 21 - 32 MMOL/L 09/13/2024 7:16 PM T [facility] CALCIUM S/P/B 9.4 8.5 - 10.1 MG/DL 09/13/2024 7:16 PM T [facility] BILIRUBIN TOTAL S/P/B 0.7 0.2 - 1.2 MG/DL 09/13/2024 7:16 PM T [facility] TOTAL PROTEIN S/P/B 7.4 6.4 - 8.2 G/DL 09/13/2024 7:16 PM T [facility] ALBUMIN S/P/B 3.8 3.4 - 5.0 G/DL 09/13/2024 7:16 PM T [facility] AST 30 15 - 37 U/L 09/13/2024 7:16 PM CDT [facility] ALT 65(H) 16 - 60 U/L 09/13/2024 7:16 PM CDT [facility] ALKALINE PHOSPHATASE S/P/B 93 50 - 136 U/L 09/13/2024 7:16 PM CDT [facility] ANION GAP 9.8 5 - 15 MMOL/L 09/13/2024 7:16 PM CDT [facility] BUN CREATININE RATIO 12.3 6 - 26 09/13/2024 7:16 PM T [facility] A/G RATIO 1.1 1.0 - 2.0 RATIO 09/13/2024 7:16 PM T [facility] GFR ESTIMATE 86(L) >90 ML/MIN/1.7 3 M2 09/13/2024 7:16 PM T [facility] Comment: NOTE: eGFR is not calculated for patients <18 years of age. This is an estimated GFR calculation using the new CKD EPI creatinine equation without race and so does not require a correction factor for race. This estimated GFR should not be used for calculating drug doses. 09/13/2024 6:55 PM CDT us Kalyn Davidson MD LABORATORY Final Result [facility] [address] [place] [address], [place] [phone] * (ABNORMAL) CBC W/DIFF AUTOMATED (09/13/2024 6:55 PM CDT) WBC 8.02 4.4 - 11.0 x10'3/uL 09/13/2024 7:03 PM CDT [facility] RBC 5.35 4.50 - 5.90 x10'6/uL 09/13/2024 7:03 PM CDT [facility] HGB 15.5 14.0 - 17.5 G/DL 09/13/2024 7:03 PM CDT [facility] HCT 45.4 41.5 - 50.4 % 09/13/2024 7:03 PM CDT [facility] MCV 84.9 80.0 - 96.0 FL 09/13/2024 7:03 PM CDT [facility] MCH 29.0 26.5 - 31.4 PG 09/13/2024 7:03 PM T [facility] MCHC 34.1 31.9 - 34.8 G/DL 09/13/2024 7:03 PM T [facility] RDW 13.1 12.3 - 14.3 % 09/13/2024 7:03 PM T [facility] PLT 232 151 - 353 x10'3/uL 09/13/2024 7:03 PM T [facility] MPV 9.6(L) 9.7 - 11.9 FL 09/13/2024 7:03 PM T [facility] RBC MORPHOLOGY NORMAL 09/13/2024 7:03 PM T [facility] PLT MORPH. NORMAL 09/13/2024 7:03 PM T [facility] WBC MORPHOLOGY NORMAL 09/13/2024 7:03 PM T [facility] LYMPHOCYTES % 14.2(L) 15.8 - 45.0 % 09/13/2024 7:03 PM T [facility] NEUTROPHILS % 81.4(H) 42.1 - 71.9 % 09/13/2024 7:03 PM CDT [facility] MONOCYTES % 4.0(L) 5.7 - 12.5 % 09/13/2024 7:03 PM CDT [facility] EOSINOPHILS 0.0 0.0 - 5.6 % 09/13/2024 7:03 PM CDT [facility] BASOPHILS 0.2 0.0 - 1.3 % 09/13/2024 7:03 PM CDT [facility] ABS. NEUTROPHILS 6.52(H) 1.40 - 6.00 x10'3/uL 09/13/2024 7:03 PM CDT [facility] IMMATURE GRANS % 0.2 0.0 - 0.5 % 09/13/2024 7:03 PM CDT [facility] ABS. LYMPHOCYTES 1.14 0.80 - 4.70 x10'3/uL 09/13/2024 7:03 PM CDT [facility] 09/13/2024 6:55 PM CDT Kalyn Davidson MD LABORATORY Final Result [facility] [address] [place] [address], [place] [phone] * LIPASE (09/13/2024 6:55 PM CDT) LIPASE 50 16 - 77 UNITS/L 09/13/2024 7:16 PM CDT [facility] 09/13/2024 6:55 PM CDT us Kalyn Davidson MD LABORATORY Final Result [facility] [address] [place] [address], [place] [phone] * CT LUMB SPINE WO CON (09/13/2024 6:54 PM CDT) Anatomical Region Laterality Modality Spine Computed Tomogra phy 09/13/2024 7:04 PM CDT Impressions 09/13/2024 7:10 PM CDT IMPRESSION: No acute findings. Referred By: Interpreted By: Jarred Underwood MD, 09/13/2024 7:04 PM Narrative 09/13/2024 7:10 PM CDT [facility] [address] [place] [address] Examination: CT LUMB SPINE WO CON Clinical history: Pain Comparison: 03/19/2023 DATE/TIME: 09/13/2024 6:36 PM Technique: Multiplanar CT images of the lumbar spine were obtained without IV contrast. Oral contrast: None. A dose lowering technique was used for this procedure, which may include, but is not limited to, dose reduction technique, automated exposure control, the use of iterative reconstruction, and ALARA (As Low As Reasonably Achievable) / Image Gently techniques. Findings: Alignment is unremarkable. No acute fracture. Vertebral body heights are maintained. L1 vertebral body hemangioma, stable. Relatively mild degenerative disease, most pronounced at L5-S1, without evidence of high-grade spinal canal stenosis. There is mild to moderate left neural foraminal stenosis at L5-S1, mild to moderate bilateral neuroforaminal stenosis at L4-5 and milder neural foraminal stenosis elsewhere. Procedure Note Jarred Underwood MD - 09/13/2024 [facility] [address] [place] [id number] Examination: CT LUMB SPINE WO CON Clinical history: Pain Comparison: 03/19/2023 DATE/TIME: 09/13/2024 6:36 PM Technique: Multiplanar CT images of the lumbar spine were obtained withoutIV contrast. Oral contrast: None. A dose lowering technique was used forthis procedure, which may include, but is not limited to, dose reductiontechnique, automated exposure control, the use of iterativereconstruction, and ALARA (As Low As Reasonably Achievable) / Image Gentlytechniques. Findings: Alignment is unremarkable. No acute fracture. Vertebral bodyheights are maintained. L1 vertebral body hemangioma, stable. Relativelymild degenerative disease, most pronounced at L5-S1, without evidence ofhigh-grade spinal canal stenosis. There is mild to moderate left neuralforaminal stenosis at L5-S1, mild to moderate bilateral neuroforaminalstenosis at L4-5 and milder neural foraminal stenosis elsewhere. IMPRESSION: No acute findings. Referred By: Interpreted By: Jarred Underwood MD, 09/13/2024 7:04 PM us Kalyn Davidson MD CT Final Result * CT ABD+PEL WO CON (09/13/2024 6:54 PM CDT) Anatomical Region Laterality Modality Abdomen Computed Tomogra phy 09/13/2024 6:57 PM CDT Impressions 09/13/2024 7:03 PM CDT IMPRESSION: 1. No obstructive stone, appendicitis or other acute abnormality identified. 2. Colonic diverticulosis without diverticulitis. 3. Other chronic or nonurgent findings as described above. Referred By: Interpreted By: Jarred Underwood MD, 09/13/2024 6:57 PM Narrative 09/13/2024 7:03 [place] [address] Examination: CT ABD+PEL WO CON Clinical history: Right flank pain Comparison: 03/17/2023 DATE/TIME: 09/13/2024 6:36 PM Technique: Multiplanar CT images of the abdomen and pelvis were obtained without IV contrast. Oral contrast: None. A dose lowering technique was used for this procedure, which may include, but is not limited to, dose reduction technique, automated exposure control, the use of iterative reconstruction, and ALARA (As Low As Reasonably Achievable) / Image Gently techniques. Findings: Cardiac pacemaker. Liver is normal size and contour. Spleen is normal size. Pancreas is not well evaluated without IV contrast. No evidence of cholecystitis or bile duct dilatation. No adrenal mass. No nephrolithiasis or hydronephrosis. Bladder is decompressed and not well evaluated. Prostate gland is normal size. Abdominal aorta is normal caliber with mild atherosclerotic calcification. Small bilateral inguinal hernias containing only fat. No free air or fluid. No bowel obstruction. No bowel wall thickening. Few scattered colonic diverticula without evidence of diverticulitis. Normal appendix. Stomach and duodenum are unremarkable. No acute osseous abnormality. Stable lesion in the L1 vertebral body consistent with hemangioma. Lower spondylosis is noted. Procedure Note Jarred Underwood MD - 09/13/2024 [facility] [address] [place] [address] Examination: CT ABD+PEL WO CON Clinical history: Right flank pain Comparison: 03/17/2023 DATE/TIME: 09/13/2024 6:36 PM Technique: Multiplanar CT images of the abdomen and pelvis were obtainedwithout IV contrast. Oral contrast: None. A dose lowering technique wasused for this procedure, which may include, but is not limited to, dosereduction technique, automated exposure control, the use of iterativereconstruction, and ALARA (As Low As Reasonably Achievable) / Image Gentlytechniques. Findings: Cardiac pacemaker. Liver is normal size and contour. Spleen isnormal size. Pancreas is not well evaluated without IV contrast. Noevidence of cholecystitis or bile duct dilatation. No adrenal mass. No nephrolithiasis or hydronephrosis. Bladder is decompressed and notwell evaluated. Prostate gland is normal size. Abdominal aorta is normalcaliber with mild atherosclerotic calcification. Small bilateral inguinalhernias containing only fat. No free air or fluid. No bowel obstruction. No bowel wall thickening.Few scattered colonic diverticula without evidence of diverticulitis.Normal appendix. Stomach and duodenum are unremarkable. No acute osseousabnormality. Stable lesion in the L1 vertebral body consistent withhemangioma. Lower spondylosis is noted. IMPRESSION: 1. No obstructive stone, appendicitis or other acute abnormalityidentified. 2. Colonic diverticulosis without diverticulitis. 3. Other chronic or nonurgent findings as described above. Referred By: Interpreted By: Jarred Underwood MD, 09/13/2024 6:57 PM us Kalyn Davidson MD CT Final Result * Urinalysis, Auto, Complete (09/13/2024 5:45 PM CDT) COLOR (U) YELLOW 09/13/2024 6:10 PM CDT [facility] TRANSPARENCY CLEAR 09/13/2024 6:10 PM CDT [facility] SPECIFIC GRAVITY (U) 1.015 1.000 - 1.030 09/13/2024 6:10 PM CDT [facility] U PH 6.5 5.0 - 9.0 09/13/2024 6:10 PM CDT [facility] LEUKOCYTES (U) NEGATIVE NEGATIVE 09/13/2024 6:10 PM CDT [facility] NITRITES NEGATIVE NEGATIVE 09/13/2024 6:10 PM CDT [facility] PROTEIN RANDOM (U) NEGATIVE NEGATIVE 09/13/2024 6:10 PM CDT [facility] GLUCOSE (U) NEGATIVE NEGATIVE 09/13/2024 6:10 PM CDT [facility] KETONES MG/DL (U) NEGATIVE NEGATIVE 09/13/2024 6:10 PM CDT [facility] BILIRUBIN (U) NEGATIVE NEGATIVE 09/13/2024 6:10 PM CDT [facility] BLOOD (U) NEGATIVE NEGATIVE 09/13/2024 6:10 PM CDT [facility] WBC/HPF 0-5 0 - 5 /HPF 09/13/2024 6:10 PM CDT [facility] RBC/HPF 0-5 0 - 5 /HPF 09/13/2024 6:10 PM CDT [facility] EPI/HPF RARE /HPF 09/13/2024 6:10 PM CDT [facility] BACTERIA (U) FEW /HPF 09/13/2024 6:10 PM CDT [facility] URINE SPECIMEN OBTAINED BY CLEAN CATCH PROCEDURE / Unknown 09/13/2024 5:45 PM CDT us Kalyn Davidson MD URINE ORDERABLES Final Result [facility] [address] [place] [address], [place] [phone] from Last 3 Months Insurance CIG[employer] CIGNA Advance Directives * Full Code (Latest Code Status on File) Date Activated Date Inactivated Comments 08/13/2021 6:06 PM 08/14/2021 4:53 PM 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 [facility] [address] [place] [address] [place] [employer] INTERVENTIONAL CARDIOLOGY 02/24/19
--- OUTSIDE RECORDS SUMMARY | 2024-10-26 08:33 | XMS_ITS | Encounter Summary ---
Author Organization [facility] Address [address] [place] [address] Care Team Providers Care Real Estate Branch Manager Name Role Phone Dick Mai MD Primary Care Provider [phone] Roc Cuevas MD Unavailable Encounter Details Date Type Department Care Team (Late st Contact Info) Description 07/13/2023 Cequens Message Enc [facility] [facility] THREE [facility], [facility] [address] [place] [address] Katya Valadez MD Three [facility]. [facility] [address] [place] [address] Symptoms post surgery Social History Tobacco Use Types Packs/Day Years [...] Sex Assigned at Male 07/24/2024 8:20 AM PBX WIRE CHIEF Legal Sex Male 4:19 PM CDT Gender [...] Assessment Author Status No 08/13/2021 5:26 PM PBX WIRE CHIEF Activ e * RETIRED Are you blind or do you have serious difficulty seeing, even when wearing glasses? Answer Date of Assessment Author Status No 08/13/2021 5:26 PM PBX WIRE CHIEF Activ e * Do you have serious [...] documented in this encounter Progress Notes * Karin Martínez RN - 07/13/2023 3:36 PM CST Needs to come in for a wound check. Above message from Kaylin MARX. I informed the patient of the above information. The patient verbalized understanding and had no further questions. Message to the national secretary. WIRE CHIEF * Karin Martínez RN - 07/13/2023 1:41 PM CST I received a phone call from the patient stating that he had an ablation on 06/17. He has a follow up appt on 07/26. The patient has discomfort to his right groin/upper thigh. The patient described it as a muscle being pulled. Once the bruising went away, the patient noticed swelling or fluid buildup below the incision site - below hip joint by inner thigh. The patient denies any numbness or tingling to his rightleg. The patient was not sure if he should be concerned. I informed the patient that I will notify the PA. The patient had no further questions. Message to Dr. Valadez and Jyothi MARX. WIRE CHIEF documented in this encounter Plan of Treatment Upcoming Encounters Date Type Department Care Team (Late st Contact Info) Description 01/22/2025 8:30 AM CDT Office Visit [facility], [address] [address] Rakel Mohan, ANP-BC [facility]. [address] [address] 01/22/2025 8:45 AM CDT Office Visit [facility], [address] [id number] Katya Valadez MD [facility]. [address] [id number] documented as of this encounter Visit Diagnoses Not on filedocumented in this encounter Care Teams Real Estate Branch Manager Relationship Specialty Start Date End Date Dick Mai MD [address] [place] [address] PCP - General 07/06/16 Roc Cuevas MD [facility]. [address] [address]27[address] [place] [employer] Recovery Worker INTERVENTIONAL CARDIOLOGY 02/24/19 documented as of this encounter
--- OUTSIDE RECORDS SUMMARY | 2024-10-26 08:33 | XMS_ITS | Encounter Summary ---
Author Organization [facility] Address [address] [place] [address] Care Team Providers Care Keeper Helper Name Role Phone Dick Mai MD Primary Care Provider [phone] Roc Cuevas MD Unavailable Encounter Details Date Type Department Care Team (Late st Contact Info) Description 01/21/2022 Datameer Message Enc [place] [facility] THREE [facility], [facility] [address] [place] [address] [facility] Provider Atrial fibrillation Social History Tobacco Use Types Packs/Day Years [...] Sex Assigned at Male 07/24/2024 8:20 AM LUGGAGE MAKER Legal Sex Male 4:19 PM CDT Gender [...] Assessment Author Status No 08/13/2021 5:26 PM LUGGAGE MAKER Activ e * RETIRED Are you blind or do you have serious difficulty seeing, even when wearing glasses? Answer Date of Assessment Author Status No 08/13/2021 5:26 PM LUGGAGE MAKER Activ e * Do you have serious [...] Type Department Care Team (Late st Contact [facility]) Description 01/22/2025 8:30 AM CDT Office Visit [facility], [facility] [address] [place] [address] Rakel Mohan, ANP-BC [facility]. [facility] [address] [place], [place] [address] 01/22/2025 8:45 AM CDT Office Visit [facility], [facility] [address] [place], [place] [address] Katya Valadez MD [facility]. [facility] [address] [place], [place] [address] documented as of this encounter Visit Diagnoses Not on filedocumented in this encounter Care Teams Keeper Helper Relationship Specialty Start Date End Date Dick Mai MD [address] [place] [address] PCP - General 07/06/16 Roc Cuevas MD Three [facility]. [facility] [address] [place] [address] [place] Painter Ordnance INTERVENTIONAL CARDIOLOGY 02/24/19 documented as of this encounter
--- OUTSIDE RECORDS SUMMARY | 2024-10-26 08:33 | XMS_ITS | Encounter Summary ---
Author Organization [facility] Address [address] [place] [address] Care Team Providers Care Transcript Clerk Name Role Phone Dick Mai MD Primary Care Provider [phone] Roc Cuevas MD Unavailable Encounter Details Date Type Department Care Team (Late st Contact Info) Description 03/16/2023 Optimus Message Enc [place] [facility] THREE [facility], [facility] [address] [place] [address] Rakel Mohan, ANP-BC Three [facility]. 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 Answer Date of Assessment Author Status No 08/13/2021 5:26 PM CHIROPRACTIC DOCTOR Activ e * Do you have serious [...] of Assessment Author Status No Risk Indicated 03/19/2023 7:31 AM Kat Lopez RN Active * [place] Suicide Severity Rating Scale (Screener/Recent Self-Report) Question Answer Date of Assessment Author Status 1. Wish to be (Past 1 Month) No 03/19/2023 7:31 AM Kat Lopez RN Active 2. Non-Specific Active Suicidal Thoughts (Past 1 Month) No 03/19/2023 7:31 AM Kat Lopez RN Active 6. Suicidal Behavior (Lifetime) No 03/19/2023 7:31 AM Kat Lopez RN Active documented as of this encounter Mental Status * Because of a physical, mental, or emotional condition, do you have serious difficulty concentrating, remembering, or making decisions? Answer Entry Date Author Status No 08/13/2021 5:26 PM CHIROPRACTIC DOCTOR Zak, Abby E, RN Active documented in this encounter Plan of Treatment Upcoming Encounters Date Type Department Care Team (Late st Contact Info) Description 01/22/2025 8:30 AM CDT Office Visit [place] [facility], [facility] [address] [place] [address] Rakel Mohan, ANP- Three [facility]. [facility] [address] [place], [place] [phone] 01/22/2025 8:45 AM CDT Office Visit [place] [facility] [address] [place], [place] [phone] Katya Valadez MD Three [facility]. [facility] [address] [place], [place] [phone] documented as of this encounter Visit Diagnoses Not on filedocumented in this encounter Care Teams Transcript Clerk Relationship Specialty Start Date End Date Dick Mai MD [address] [place] [address] PCP - General 07/06/16 Roc Cuevas MD [facility]. [facility] [address] [place], [place] [address] [place] Veterinary Technician Instructor INTERVENTIONAL CARDIOLOGY 02/24/19 documented as of this encounter
--- OUTSIDE RECORDS SUMMARY | 2024-10-26 08:33 | XMS_ITS | Clinical Summary ---
Author Organization [facility] Address [address], [facility] [address] [place] [address] Phone Care Team Providers Care Air Brake Operator Name Role Phone Dick Mai Primary Care Provider [phone] Allergies Active Allergy Reactions Criticality Noted Date Comments Amoxicillin-Pot Clavulanate Other (see Comments) 05/08/2019 Gets C diff when taking Medications ALPRAZolam (XANAX) 0.5 MG Tablet Take 0.5 mg by mouth. 03/02/2019 Active atorvastatin (LIPITOR) 10 MG Tablet Take 10 mg by mouth. 04/07/2019 Active hydroCHLOROthia zide 25 MG Tablet Take 25 mg by mouth. Active Omeprazole Magnesium 20 MG Tablet Delayed Response Take 20 mg by mouth. Active omeprazole (PriLOSEC) 20 MG CAPSULE DELAYED RELEASE TAKE 1 CAPSULE BY MOUTH ONCE DAILY 12/02/2020 Active Eliquis 5 MG Tablet Take 5 mg by mouth 2 times daily. 11/04/2021 Active metoprolol tartrate (LOPRESSOR) 50 MG Tablet Take 50 mg by mouth 2 times daily. 11/04/2021 Active Immunizations Immunization Administration Dates Next Due Covid-19, Mrna, Lnp-s, Pf, 30 Mcg/0.3 Ml Dose (Ailyn leary) 11/01/2020,10/07/2020 Influenza Vaccine 04/23/2016,03/24/2015 Influenza Vaccine, Quadrivalent, PF 05/30/2020 MMR Vaccine 02/12/1993 Family History Medical History Relation Name Comments Chronic Obstructive Pulmonary Disease Father Hypertension Father Hypertension Mother Relation Name Status Comments Father Alive Mother Alive Sister Alive Social History Tobacco Use Types Packs/Day Years Used Date Smoking Tobacco: Former Cigarettes 1 10 2 - 2018 Smokeless Tobacco: Never Tobacco Cessation:Counseling Given: No Alcohol Use Standard Drinks/Week Comments Not Currently 0 (1 standard drink = 0.6 oz pur e alcohol) PHQ-2 Answer Date Recorded Total Score - Questions 1-9 0 09/2021 Sex and Gender Information Value Date Recorded Sex Assigned at Not on file Legal Sex Male 2:28 PM CDT Gender Identity Not on file Sexual Orientation Not on file Last Filed Vital Signs Vital Sign Reading Time Taken Comments Blood Pressure 136/90 01/29/2022 2:30 PM CDT Pulse 72 01/29/2022 2:30 PM CDT Temperature 36.3 C (97.3 F) 01/29/2022 2:30 PM CDT Respiratory Rate 18 01/30/2021 2:49 PM CDT Oxygen Saturation 98% 01/29/2022 2:30 PM CDT Inhaled Oxygen Concentration - - Weight 157.3 kg (346 lb 12.8 oz) 01/29/2022 2:30 PM CDT Height 170.2 cm (5' 7 ) 01/29/2022 2:30 PM CDT Body Mass Index 54.32 01/29/2022 2:30 PM CDT Plan of Treatment Health Maintenance Due Date Last Done Comments Hepatitis C Virus (HCV) Screening 1975 TdaP Immunization 1975 Hepatitis B Immunization (1 of 3 - 19+ 3-dose series) 09/10/1994 Colonoscopy 09/10/2020 Colorectal Cancer Screening 09/10/2020 SARS-COV-2 Immunization ( season) 2024 06/15/2021, 11/01/2020, 10/07/2020 Influenza Immunization (Seas on Ended) 2025 05/30/2020, 04/23/2016, 03/24/2015 Respiratory Syncytial Virus (RSV) Immunization (Adult) (1 - 1-dose 75+ series) 09/10/2050 Meningococcal Immunization (ACWY) Aged Out No longer eligible b ased on patient's age to complete this topic Pneumococcal Immunization Combined Aged Out No longer eligible b ased on patient's age to complete this topic Rotavirus Immunization Aged Out No lo nger eligible based on patient's age to complete this topic Insurance [place] LOPEZ [id number] [facility] Care Teams Air Brake Operator Relationship Specialty Start Date End Date Dick Mai [facility] [place] [address] PCP - General 01/01/21
--- OUTSIDE RECORDS SUMMARY | 2024-10-26 08:33 | XMS_ITS | Referral Summary ---
Author Organization [facility] Address [address] [place] [address] Care Team Providers Care Motor Express Clerk Name Role Phone Dick Mai MD [...] 05/12/2023 Assessment & Plan (05/12/2023 6:59 AM CHIEF SCIENCE OFFICER): Severe decay 16 and 17 To OR for extraction 16 and 17. Procedure reviewed including risks, benefits and alternative treatments, consent signed Social History Tobacco Use Types Packs/Day Years [...] on file Legal Sex Male 10:40 AM CHIEF SCIENCE OFFICER Gender Identity Male 03/12/2021 7:45 PM CDT Sexual Orientation Not on file Last Filed Vital Signs Vital Sign Reading Time Taken Comments Blood Pressure 137/92 06/16/2024 11:10 AM CHIEF SCIENCE OFFICER Pulse 60 06/16/2024 11:10 AM CHIEF SCIENCE OFFICER Temperature 36.7 C (98 F) 06/16/2024 9:39 AM CHIEF SCIENCE OFFICER Respiratory Rate 19 06/16/2024 11:10 AM CHIEF SCIENCE OFFICER Oxygen Saturation 96% 06/16/2024 11:10 AM CHIEF SCIENCE OFFICER Inhaled Oxygen Concentration - - Weight 154.2 kg (340 lb) 06/16/2024 10:13 AM CHIEF SCIENCE OFFICER Height 170.2 cm (5' 7 ) 06/16/2024 10:13 AM CHIEF SCIENCE OFFICER Body Mass Index 53.25 06/16/2024 10:13 AM CHIEF SCIENCE OFFICER Plan of Treatment Not on file Medical Devices Implanted Type Area Knuckle Bender Device Identifier Shelf Expiration Date Model / Serial / Lot Pacemaker-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/2020 (Quantity not on file) Pacemaker Left: Chest Procedures Procedure Name Priority Date/Time Associated Diagnosis Comments COLONOSCOPY 06/16/2024 10:16 AM CHIEF SCIENCE OFFICER from Last 3 Months or Most Recently Relevant to Health Maintenance Results * Colonoscopy (06/16/2024 10:16 AM CHIEF SCIENCE OFFICER) Anatomical Region Laterality Modality Other Narrative Procedure Note Kim Godoy MD - 06/16/2024 10:16 AM CST [facility] END[facility] Patient Name: Ulysses Jacob Procedure Date: 06/16/2024 10:16AM Date of : 1975 Admit Type: Outpatient Age: 48 Gender: Male Attending MD: Kim Godoy M.D. Room: [facility] ENDOSCOPY ROOM 06 Note Status: Finalized Procedure: [...] The scope was passed under direct vision.The [id number] colonoscope was introduced through theanus and advanced [...] On: 06/16/2024 10:16 AM Recognized by the [employer] for promoting quality in endoscopy Kim Godoy MD ENDOSCOPY PROCEDURES Jazmin l Result from Last 3 Months or Most Recently Relevant to Health Maintenance Insurance CIGNA OPEN ACCESS CIGNA OPEN ACCESS CIGNA OPEN ACCESS Care Teams Motor Express Clerk Relationship Specialty Start Date End Date Dick Mai MD PCP - General 10/29/18
--- OUTSIDE RECORDS SUMMARY | 2024-10-26 08:33 | XMS_ITS | Encounter Summary ---
Author Organization [facility] Address [address] [place] [address] Care Team Providers Care Director Distribution Name Role Phone Dick Mai MD Primary Care Provider [phone] Roc Cuevas MD Unavailable Encounter Details Date Type Department Care Team (Late st Contact Info) Description 04/21/2021 Secret Escapes Message Enc [place] [facility] THREE [facility], [facility] [address] [place] [address] Rakel Mohan, ANP- Three [facility]. 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 No / Unsure 04/15/2021 8:32 PM CDT documented as of this encounter Plan of Treatment Upcoming Encounters Date Type Department Care Team (Late st Contact Info) Description 01/22/2025 8:30 AM CDT Office Visit [facility] THREE [facility], [facility] [address] [place], [place] [address] Rakel Mohan, ANP- Three [facility]. [facility] [address] [place] [address] 01/22/2025 8:45 AM CDT Office Visit [facility] [address] [place], [place] [address] Katya Valadez MD Three [facility]. [facility] [address] [place], [place] [phone] documented as of this encounter Visit Diagnoses Not on filedocumented in this encounter Additional Health Concerns Infection Onset Date Last Indicated Resolved Time COVID-19 Rule Out 08/13/2021 08/13/2021 08/13/2021 3:43 PM AIR HAMMER STRIPPER documented as of this encounter Care Teams Director Distribution Relationship Specialty Start Date End Date Dick Mai MD [facility] [place] [address] PCP - General 07/06/16 Roc Cuevas MD [facility]. [facility] [address] [place], [place] [address] [place] Dice Manager INTERVENTIONAL CARDIOLOGY 02/24/19 documented as of this encounter
--- OUTSIDE RECORDS SUMMARY | 2024-10-26 08:33 | XMS_ITS | Encounter Summary ---
Author Organization [facility] Address [address] [place] [address] Care Team Providers Care Food Trades Assistants Name Role Phone Dick Mai MD Primary Care Provider [phone] Roc Cuevas MD Unavailable Encounter Details Date Type Department Care Team (Late st Contact Info) Description 10/11/2022 Protean Payment Message Enc [place] [facility] THREE [facility], [facility] [address] [place] [address] Rakel Mohan, ANP- Three [facility]. [facility] [address] [place] [address] Metoprolol 3x/ day Social History Tobacco Use Types Packs/Day Years [...] Sex Assigned at Male 07/24/2024 8:20 AM WAITER AND CASHIER Legal Sex Male 4:19 PM CDT Gender [...] Assessment Author Status No 08/13/2021 5:26 PM WAITER AND CASHIER Activ e * RETIRED Are you blind or do you have serious difficulty seeing, even when wearing glasses? Answer Date of Assessment Author Status No 08/13/2021 5:26 PM WAITER AND CASHIER Activ e * Do you have serious [...] Description 01/22/2025 8:30 AM CDT Office Visit [place] [facility], [facility] [address] [place], [place] [phone] Rakel Mohan, ANP-BC [facility]. [facility] [address] [place], [place] [phone] 01/22/2025 8:45 AM CDT Office Visit [place] [facility], [facility] [address] [place] [address] Katya Valadez MD Three [facility]. [facility] [address] [place] [address] documented as of this encounter Visit Diagnoses Not on filedocumented in this encounter Care Teams Food Trades Assistants Relationship Specialty Start Date End Date Dick Mai MD [address] [place] [id number] PCP - General 07/06/16 Roc Cuevas MD Three [facility]. [facility] [address] [place] [address] [place] Jewelry Sales Coordinator INTERVENTIONAL CARDIOLOGY 02/24/19 documented as of this encounter
--- OUTSIDE RECORDS SUMMARY | 2024-10-26 08:33 | XMS_ITS | Encounter Summary ---
Author Organization [facility] Address [address] [place] [address] Care Team Providers Care Credentialer Name Role Phone Dick Mai MD Primary Care Provider [phone] Roc Cuevas MD Unavailable Encounter Details Date Type Department Care Team (Late st Contact Info) Description 04/14/2021 Blazent Message Enc [place] [facility] THREE [facility], [facility] [address] [place] [address] Rakel Mohan, ANP-BC [facility]. [facility] [address] [place] [address] RE: Follow Up/Update Social History Tobacco Use Types Packs/Day Years [...] Sex Assigned at Male 07/24/2024 8:20 AM DIRECTOR OF MEDICAL SERVICES Legal Sex Male 4:19 PM CDT Gender [...] PM CDT documented as of this encounter Progress Notes * Yareli Garcia - 04/15/2021 5:58 PM CDT Order entered and scheduled for 04/18 at 1PM at [facility], called patient to go over instruction. Patientv/u and had no further instructions. * RONAK Gordillo - 04/14/2021 10:28 AM CDT Please set up a left upper extremity ultrasound Dx: swelling, rule out DVT post pacemaker documented in this encounter Plan of Treatment Upcoming Encounters Date Type Department Care Team (Late st Contact Info) Description 01/22/2025 8:30 AM CDT Office Visit [place] [facility], [facility] [address] [place], [place] [address] Rakel Mohan ANP-BC [facility]. [place] [address] [place], [place] [phone] 01/22/2025 8:45 AM CDT Office Visit [place] [facility], [facility] [address] [place], [place] [phone] Katya Valadez MD [facility]. [facility] [address] [place], [place] [phone] documented as of this encounter Visit Diagnoses Not on filedocumented in this encounter Additional Health Concerns Infection Onset Date Last Indicated Resolved Time COVID-19 Rule Out 08/13/2021 08/13/2021 08/13/2021 3:43 PM DIRECTOR OF MEDICAL SERVICES documented as of this encounter Care Teams Credentialer Relationship Specialty Start Date End Date Dick Mai MD [facility] [place] [address] PCP - General 07/06/16 Roc Cuevas MD [facility] [address] [place] [address] [place] Choreography Director INTERVENTIONAL CARDIOLOGY 02/24/19 documented as of this encounter
--- OUTSIDE RECORDS SUMMARY | 2024-10-26 08:33 | XMS_ITS | Encounter Summary ---
Author Organization [facility] Address [address] [place] [address] Care Team Providers Care Veterinary Attendant Name Role Phone Dick Mai MD Primary Care Provider [phone] Roc Cuevas MD Unavailable Encounter Details Date Type Department Care Team (Late st Contact Info) Description 05/09/2024 Atterocor Message Enc [place] [facility] [facility] THREE [facility], [facility] [address] [place] [address] Roc Cuevas MD Three [facility]. [facility] [address] [place] [address] Cardioaversion question Social History Tobacco Use Types Packs/Day [...] Sex Assigned at Male 07/24/2024 8:20 AM UTILITY HAND Legal Sex Male 4:19 PM CDT [...] Assessment Author Status No 08/13/2021 5:26 PM UTILITY HAND Activ e * RETIRED Are you blind or do you have serious difficulty seeing, even when wearing glasses? Answer Date of Assessment Author Status No 08/13/2021 5:26 PM UTILITY HAND Activ e * Do you have serious difficulty walking or climbing stairs? Answer Date of Assessment Author Status No 08/13/2021 5:26 PM UTILITY HAND Abby Crespo RN Active * Do you [...] documented in this encounter Progress Notes * Barbi Alberto RN - 05/09/2024 1:44 PM CST . ITY HAND documented in this encounter Plan of Treatment Upcoming Encounters Date Type Department Care Team (Late st Contact Info) Description 01/22/2025 8:30 AM CDT Office Visit [place] [facility] THREE [facility], [facility] [address] [place] [address] Rakel Mohan, ANP-BC [facility]. [facility] [address] [place] [address] 01/22/2025 8:45 AM CDT Office Visit [place] [facility] THREE [facility], [facility] [address] [place], [place] [address] Katya Valadez MD Three [facility]. [facility] [address] [place], [place] [phone] documented as of this encounter Visit Diagnoses Not on filedocumented in this encounter Care Teams Veterinary Attendant Relationship Specialty Start Date End Date Dick Mai MD [address] [place] [address] [id number] PCP - General 07/06/16 Roc Cuevas MD [facility]. [facility] [address] [place] [address] [place] Environmental Studies Program Director INTERVENTIONAL CARDIOLOGY 02/24/19 documented as of this encounter
--- OUTSIDE RECORDS SUMMARY | 2024-10-26 08:33 | XMS_ITS | Encounter Summary ---
Author Organization [facility] Address [address] [place] [address] Care Team Providers Care Set Up Mechanic Name Role Phone Dick Mai MD Primary Care Provider [phone] Roc Cuevas MD Unavailable Encounter Details Date Type Department Care Team (Late st Contact Info) Description 01/12/2022 MonkeyFind Message Enc [facility] THREE [facility], [facility] [address] [place] [address] [facility] Atrial fibrillation Social History Tobacco Use [...] Sex Assigned at Male 07/24/2024 8:20 AM ASSISTED LIVING NURSING DIRECTOR Legal Sex Male 4:19 PM CDT [...] Assessment Author Status No 08/13/2021 5:26 PM ASSISTED LIVING NURSING DIRECTOR Activ e * RETIRED Are you blind or do you have serious difficulty seeing, even when wearing glasses? Answer Date of Assessment Author Status No 08/13/2021 5:26 PM ASSISTED LIVING NURSING DIRECTOR Activ e * Do you have serious [...] Type Department Care Team (Late st Contact [facility]) Description 01/22/2025 8:30 AM CDT Office Visit [facility], [facility] [address] [place] [address] Rakel Mohan, ANP-BC [facility]. [facility] [address] [place], [place] [address] 01/22/2025 8:45 AM CDT Office Visit [facility], [facility] [address] [place], [place] [address] Katya Valadez MD [facility]. [facility] [address] [place], [place] [id number] documented as of this encounter Visit Diagnoses Not on filedocumented in this encounter Care Teams Set Up Mechanic Relationship Specialty Start Date End Date Dick Mai MD [address] [place] [id number] PCP - General 07/06/16 Roc Cuevas MD Three [facility]. [facility] [address] [place] [address] [place] Strike Plate Attacher INTERVENTIONAL CARDIOLOGY 02/24/19 documented as of this encounter
--- OUTSIDE RECORDS SUMMARY | 2024-10-26 08:33 | XMS_ITS | Encounter Summary ---
Author Organization [facility] Address [address] [place] [address] Care Team Providers Care Academic Support Director Name Role Phone Dick Mai MD Primary Care Provider [phone] Roc Cuevas MD Unavailable Encounter Details Date Type Department Care Team (Late st Contact Info) Description 01/02/2021 YaKlass Message Enc [facility] THREE [facility], [facility] [address] [place] [address] Roc Cuevas MD Three [facility]. [facility] [address] [place] [address] RE: Other Social History Tobacco Use Types Packs/Day Years [...] Sex Assigned at Male 07/24/2024 8:20 AM MANAGER ED Legal Sex Male 4:19 PM CDT Gender [...] have Coronavirus / COVID-19? No / Unsure 12/23/2020 9:13 AM CDT documented as of this encounter Progress Notes * Barbi Alberto RN - 01/02/2021 1:00 PM CDT See message, thanks documented in this encounter Plan of Treatment Upcoming Encounters Date Type Department Care Team (Late st Contact Info) Description 01/22/2025 8:30 AM CDT Office Visit [facility], [facility] [address] [place], [place] [address] Rakel Mohan, ANP-[facility]. [facility] [address] [place] [address] 01/22/2025 8:45 AM CDT Office Visit [facility], [facility] [address] [place], [place] [address] Katya Valadez MD [facility]. [facility] [address] [place], [place] [address] documented as of this encounter Visit Diagnoses Not on filedocumented in this encounter Additional Health Concerns Infection Onset Date Last Indicated Resolved Time COVID-19 Rule Out 08/13/2021 08/13/2021 08/13/2021 3:43 PM MANAGER ED documented as of this encounter Care Teams Academic Support Director Relationship Specialty Start Date End Date Dick Mai MD [address] [place] [address] PCP - General 07/06/16 Roc Cuevas MD Located [facility]. [facility] [address] [place] [address] [place] [employer] INTERVENTIONAL CARDIOLOGY 02/24/19 documented as of this encounter
--- OUTSIDE RECORDS SUMMARY | 2024-10-26 08:33 | XMS_ITS | Encounter Summary ---
Author Organization [facility] Address [address] [place] [address] Care Team Providers Care Loan Consultant Name Role Phone Dick Mai MD Primary Care Provider [phone] Roc Cuevas MD Unavailable Encounter Details Date Type Department Care Team (Late st Contact Info) Description 01/21/2021 Hospital Orders Only [facility] THREE [facility], [facility] [address] [place], [place] [id number] Rakel Mohan, ANP- Three [facility]. 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 No / Unsure 01/24/2021 8:33 AM CDT documented as of this encounter Plan of Treatment Upcoming Encounters Date Type Department Care Team (Late st Contact Info) Description 01/22/2025 8:30 AM CDT Office Visit [facility] [address], [place] [address] Rakel Mohan, ANP-BC Three [facility]. [facility] [address] [place] [address] 01/22/2025 8:45 AM CDT Office Visit [facility] THREE [facility], [facility] [address], [place] [address] Katya Valadez MD Three [facility]. [facility] [address] [place], [place] [id number] documented as of this encounter Visit Diagnoses Not on filedocumented in this encounter Additional Health Concerns Infection Onset Date Last Indicated Resolved Time COVID-19 Rule Out 08/13/2021 08/13/2021 08/13/2021 3:43 PM [employer]CHANT [employer] documented as of this encounter Care Teams Loan Consultant Relationship Specialty Start Date End Date Dick Mai MD [address] [place] [phone] PCP - General 07/06/16 Roc Cuevas MD Three [facility]. [facility] [address] [place], [place] [address] [place] Export Sales Assistant INTERVENTIONAL CARDIOLOGY 02/24/19 documented as of this encounter
--- OUTSIDE RECORDS SUMMARY | 2024-10-26 08:33 | XMS_ITS | Encounter Summary ---
Author Organization [facility] Address [address] [place] [address] Care Team Providers Care Financial Project Manager Name Role Phone Dick Mai MD Primary Care Provider [phone] Roc Cuevas MD Unavailable Encounter Details Date Type Department Care Team (Late st Contact Info) Description 09/01/2022 Safello Message Enc [place] [facility] [facility] THREE [facility], [facility] [address] [place] [address] Rakel Mohan, ANP- Three [facility]. 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 No / Unsure 08/11/2022 6:30 PM SENIOUR INSIGHT MANAGER documented as of this encounter Functional Status * RETIRED Are you deaf or do you have serious difficulty hearing Answer Date of Assessment Author Status No 08/13/2021 5:26 PM SENIOUR INSIGHT MANAGER Activ e * RETIRED Are you blind or do you have serious difficulty seeing, even when wearing glasses? Answer Date of Assessment Author Status No 08/13/2021 5:26 PM SENIOUR INSIGHT MANAGER Activ e * Do you have serious difficulty walking or climbing stairs? Answer Date of Assessment Author Status No 08/13/2021 5:26 PM Abby Beckwith RN Active * Do you have difficulty dressing or bathing? Answer Date of Assessment Author Status No 08/13/2021 5:26 PM SENIOUR INSIGHT MANAGER Abby Crespo RN Active * Because of [...] AM CDT Office Visit [facility], [facility] [address] [place] [address] Rakel Mohan, ANP-BC [facility]. [facility] [address] [place], [place] [address] 01/22/2025 8:45 AM CDT Office Visit [facility] THREE [facility], [facility] [address] [place] [address] Katya Valadez MD Three [facility]. [facility] [address] [place], [place] [id number] documented as of this encounter Visit Diagnoses Not on filedocumented in this encounter Care Teams Financial Project Manager Relationship Specialty Start Date End Date Dick Mai MD [address] [place] [id number] PCP - General 07/06/16 Roc Cuevas MD Three [facility]. [facility] [address] [place] [address] [place] Hourly Sales Staff INTERVENTIONAL CARDIOLOGY 02/24/19 documented as of this encounter
[2024-11-23 12:15] VITALS: BMI 54.5
--- NOTE | 2024-11-23 12:15 | P.SLEEP_ITS ---
Sleep Study Date of Study: 10/26/24 Ordering Provider: Cris Stewart DO Interpreting Physician: Cris Stewart DO Sleep Study Type: CPAP Titration Height: 1.7 m Weight: 157.85 kg Body Mass Index: 54.5 Neck Circumference (inches): 20 [place]: 3 Reason for Sleep Study Previously diagnosed with severe sleep apnea. Currently on AutoPAP 5-20 cm H2O. Compliance data shows residual AHI<5. Experiencing air hunger. Sleep History The patient is a 49 year male with previously diagnosed sleep apnea on AutoPAP that had a sleep study ordered due to difficulty tolerating current pressure settings. The patient frequently awakens from sleep short of breath. He frequently awakens at night with heartburn, belching or cough. He constantly snores loudly enough that others complain. He constantly has trouble sleeping when he has a cold. He occasionally wakes up gasping for air throughout the night. He frequently has breathing problems at night observed by himself or others. He rarely sweats excessively at night. He occasionally has heart palpitations or irregular heartbeats during the night. He rarely falls asleep during the day but never while driving. He denies sleep paralysis and cataplexy. He occasionally has trouble at school or work due to sleepiness. He rarely experiences vivid dreamlike scenes upon awakening or falling asleep. He denies feeling afraid of going to sleep. He rarely has nightmares. He rarely remembers his dreams. He frequently has thoughts racing through his mind. He rarely feels sad, depressed or anxious. He occasionally has muscular tension. He rarely notices parts of his body jerk. He denies kicking. He frequently has crawling and aching feelings in his legs but denies leg pain during the night. He occasionally grinds his teeth during sleep but rarely awakens with morning jaw pain. He is constantly bothered by pain during the day but rarely awakened by pain during the night. He rarely wakes up feeling stiff in the morning. He rarely wakes up with sore achy muscles. He rarely wakes up with pain in the neck, spine and other joints. He goes to bed at 9:00 p.m. on both weekdays and weekends. It takes him less than 30 minutes to fall asleep. He wakes up 1-2 times throughout the night to urinate and is able to fall back asleep within 5 minutes. He wakes up at 5:00 a.m. on both weekdays and weekends. He typically gets 7 hours of sleep per night. He does not stay in bed after waking the morning. He currently lives. He denies consuming any caffeinated beverages within 2 hours of bedtime. He denies engaging in physical exercise before bedtime. He will read and watch television before falling asleep. He denies taking naps in afternoon or the evening. He denies consuming any caffeinated beverages throughout the day. He denies alcohol use. He uses cannabis daily. [facility] Past Medical History Medical History HTN (hypertension) Atrial fibrillation Fatty liver Tonsillectomy planned GERD (gastroesophageal reflux disease) Seasonal allergies Family History Family History Father Hypertension Depression Alcoholism Cancer Mother Hypertension Depression Heart disease Alcoholism Sibling Alcoholism Depression Social History Social History Smoking status: Never smoker Smoking end date: 08/10/18 Alcohol intake: never Alcohol use details: June 2018 quit drinking Substance use: current Substance use type: marijuana Last use: daily vapes, occasionally smokes and edibles Do You Feel Safe in your Home?: Yes Medications Home Medications ?Medication ?Instructions ?Recorded ?Confirmed ?Type acetaminophen 500 mg tablet 500 mg PO Q6H PRN Pain 09/20/23 08/17/24 History (Tylenol Extra Strength) alprazolam 0.5 mg tablet (Xanax) 0.5 mg PO QHS PRN Pain 09/20/23 08/17/24 History apixaban 5 mg tablet (Eliquis) 5 mg PO BID 09/20/23 08/17/24 History atorvastatin 10 mg tablet (Lipitor) 10 mg PO DAILY 09/20/23 08/17/24 History hydrochlorothiazide 25 mg tablet 25 mg PO DAILY 09/20/23 08/17/24 History omeprazole magnesium 20 mg 20 mg PO DAILY 09/20/23 08/17/24 History tablet,delayed release (Prilosec OTC) cholecalciferol (vitamin D3) 25 25 mcg PO DAILY 08/17/24 08/17/24 History mcg (1,000 unit) capsule eszopiclone 3 mg tablet (Lunesta) 3 mg PO QHS #1 tablet 08/17/24 08/17/24 Rx metoprolol succinate 100 mg 100 mg PO ONCE 08/17/24 08/17/24 History tablet,extended release 24 hr multivit,calc,mins-folic 240 1 tablet PO DAILY 08/17/24 08/17/24 History mcg-vit K1 30 mcg-lycopene 300 mcg tablet (One-A-Day Men's Complete) omega 6-skj-mlc-fish oil 100 cap PO 08/17/24 08/17/24 History mg-160 mg-1,000 mg capsule (Fish Oil) psyllium husk 0.4 gram capsule 0.4 g PO DAILY 08/17/24 08/17/24 History (Daily Fiber) Sleep Procedure A full night CPAP Titration using the [employer] multi-channel system recorded the standard physiologic parameters including EEG, EOG, submentalis E MG, anterior tibialis EMG, EKG, body position, nasal and oral airflow using nasal pressure sensor and thermistor.? Respiratory parameters of chest and abdominal movements were recorded with Respiratory Inductance Plethysmography belts. Oxygen saturation was recorded by pulse oximetry. Video monitoring was also performed. Sleep stages, periodic limb movements, and EEG arousals were scored in 30 second epochs according to the criteria of the AASM Scoring Manual. The Apnea-Hypopnea Index was calculated using CMS guidelines for definition of hypopnea with 4% O2 desaturations while scoring respiratory events. Sleep Architecture The total recording time was 468.5 minutes.? The total sleep time was 233.0 minutes. Sleep latency was 41.0 minutes. REM latency was 190.5 minutes. Sleep efficiency was 49.7%. The patient had 47 awakenings for an awakening index of 12.1. Wake after Sleep Onset time was 194.5 minutes. The patient spent 33.5 minutes, 14.4% of total sleep time in Stage N1. The patient spent 112.5 minutes, 48.3% in Stage N2. The patient spent 55.5 minutes, 23.8% in Stage N3. The patient spent 31.5 minutes, 13.5% in Stage REM. Respiratory Analysis The patient had 13 hypopneas for an overall Apnea Hypopnea Index of 3.3 events per hour. The REM Apnea Hypopnea Index was 0. The NREM Apnea Hypopnea Index was 3.9. The patient had a Central Apnea Hypopnea Index of 0. There was no evidence of Osmar-Neves Respirations. The patient was started on CPAP 7 cm H2O and titrated to CPAP 14 cm H2O due to hypopneas. The patient was able to fall asleep starting on CPAP 8 cm H2O. The patient was able to achieve REM sleep starting on CPAP 13 cm H2O. The patient was able to achieve a residual AHI less than 5 with both NREM and REM sleep in the supine position on the final two pressure settings. On CPAP 13 cm H2O, the patient spent 70.5 minutes in NREM and 17 minutes in REM with 1 hypopnea, resulting in an AHI of 0.7. On CPAP 14 cm H2O, the patient spent 77.5 minutes in NREM and 14.5 minutes in REM with 3 hypopneas, resulting in an AHI of 2.0. The patient had a sleep efficiency of 94.6% on 13 cm H2O and 61.5% on 14 cm H2O. Arousals There were 146 total arousals for an arousal index of 37.6. There were 26 spontaneous arousals for an index of 6.7. ?There were 15 arousals due to respiratory events for an index of 3.9. There were 87 arousals due to periodic limb movements for an index of 22.4.? There were 17 arousals due to isolated limb movements for an index of 4.4. Periodic Limb Movements The patient had 32 isolated limb movements with an index of 8.2. The patient had 246 periodic limb movements with index of 63.3, which is elevated (normal < 15). Patient had a total of 278 limb movements with a total limb movement index of 71.6. Oximetry Data The patient had an average oxygen saturation of 92.8% in sleep with a minimum oxygen saturation of 88.0% and a maximum oxygen saturation of 97.0%. The patient had 13 oxygen desaturations that were 4% or greater resulting in an Oxygen Desaturation Index of 3.3.? The patient spent 0.1 minutes of total sleep time with an oxygen saturation below 88%. Snoring Profile Mild to moderate snoring was present in the beginning of the study. The snoring resolved once the patient was titrated to 14 cm H2O. Cardiac Profile The EKG showed normal sinus rhythm with occasional PVCs. The patient had an instance where he had a 7 PVC run. The patient had an average pulse rate of 60.6 bpm with a minimum pulse rate of 60.0 bpm and a maximum pulse rate of 83.0 bpm. ? EEG Profile No signs of seizure activity seen. Assessment and Plan Assessment and Plan (1) HANSEL (obstructive sleep apnea): Code(s): G47.33 - Obstructive sleep apnea (adult) (pediatric) Status: Acute Assessment and Plan: The patient was started on CPAP 7 cm H2O and titrated to CPAP 14 cm H2O due to hypopneas. The patient's sleep apnea resolved on the final two pressure settings. I recommend that the patient be prescribed CPAP 14 cm H2O, size large F&P solo nasal pillows, CPAP filters/tubing and heated humidity. This should be used with all episodes of sleep.? Compliance should be reviewed within 31-90 days of starting therapy for usage greater than 4 hours per night greater than 70% of the nights. The patient should be asked about symptoms such as?excessive daytime sleepiness, quality of sleep, decreased nocturia, increased?mental functioning such as memory, mood, and concentration. While the patient had a significant number of periodic limb movements, the frequency drastically decreased once the patient was titrated to the optimal pressure setting. I recommend asking the patient about leg movements at his first CPAP compliance visit. I also recommend asking the patient about RLS symptoms as well. Data The data obtained during this sleep study is adequate for interpretation. Certification This sleep study has been reviewed by a board certified sleep medicine physician.
== END 2024-10-27 06:30 | disposition home or self-care (01) ==
LOC: ANHCSM 08:29
PROVIDERS: PCP Family Medicine; Visit Provider Family Medicine
DX: G47.33 Obstructive sleep apnea (adult) (pediatric) (principal)
CPT/HCPCS: 95811